=== PATIENT | female | born 1935 | race Asian ===

== ENCOUNTER 2017-03-19 02:10 | Inpatient (IN) | payer MEDICARE, MEDICAID ==
[2017-03-19] VITALS (8 sets, daily range): BP systolic 104–135; BP diastolic 62–79
[~2017-03-19] VITALS: Ht 157.5 cm; Wt 53.1 kg
[2017-03-19] MEDS ORDERED: BP MEDS (02:41)
[2017-03-19 03:30] LABS: BASOPHILS % (AUTO) 0.6 % (0.0-2.0); EOSINOPHILS % (AUTO) 4.1 % (0.0-3.0); LYMPHOCYTES % (AUTO) 11.9 % (20.0-45.0); MEAN CORPUSCULAR HEMOGLOBIN 30.4 PG (27.0-31.0); MEAN CORPUSCULAR VOLUME 92 FL (80-99); MEAN PLATELET VOLUME 8.3 FL (6.5-10.1); MONOCYTES % (AUTO) 9.9 % (1.0-10.0); NEUTROPHILS % (AUTO) 73.6 % (45.0-75.0); PLATELET COUNT 125 K/UL (150-450); RED BLOOD COUNT 3.93 M/UL (4.20-5.40); WHITE BLOOD COUNT 5.1 K/UL (4.8-10.8)
[2017-03-19 03:31] LABS: APPEARANCE,URINE CLEAR; KETONES,URINE NEGATIVE (NEGATIVE); LEUKOCYTE ESTERASE ,URINE 3+ (NEGATIVE); NITRITE,URINE NEGATIVE (NEGATIVE); PH,URINE 5 (4.5-8.0); PROTEIN,URINE 1+ (NEGATIVE); UROBILINOGEN,URINE NORMAL MG/DL (0.0-1.0)
[2017-03-19 03:38] LABS: BACTERIA,URINE FEW /HPF; RBC,URINE 0-2 /HPF (0 - 2); SQUAMOUS EPITHELIAL CELL,UR FEW /LPF (NONE/OCC); WBC,URINE TNTC /HPF (0 - 2)
[2017-03-19 03:50] LABS: ALANINE AMINOTRANSFERASE 67 U/L (3-33); ALBUMIN/GLOBULIN RATIO 1.3 (1.0-2.7); ANION GAP 18 (5-15); ASPARTATE AMINO TRANSFERASE 119 U/L (5-40); CALCIUM 9.1 mg/dL (8.6-10.2); CARBON DIOXIDE 19 mEQ/L (20-30); CHLORIDE 93 mEQ/L (98-107); CREATININE 2.2 mg/dL (0.5-0.9); HEMOLYSIS 12; POTASSIUM 4.4 mEQ/L (3.4-4.9); SODIUM 130 mEQ/L (135-145); TOTAL PROTEIN 7.6 g/dL (6.6-8.7); TROPONIN I < 0.30 ng/mL (<=0.30)
[2017-03-19 04:02] LABS: CKMB 3.2 ng/mL (< 3.8)
[2017-03-19] MEDS ORDERED: cefTRIAXone 1 GM in NS 55 ML IVPB ONE (04:30)
--- NOTE | 2017-03-19 06:55 | Emergency Room Report ---
History of Present Illness General Chief Complaint: Generalized Weakness Source: Patient, Family Member Present Illness HPI 81-year-old female presents ED for evaluation. Son at bedside states that the last few days patient is feeling increasingly weak with poor appetite. Febrile at home. Patient denies any chest pain or shortness of breath. Denies any nausea or vomiting. Denies sick contacts or recent travel. No other aggravating relieving factors. Denies any other associated symptoms Allergies: Coded Allergies: No Known Allergies (Unverified , 03/19/17) Patient History Past Medical History: HTN Past Surgical History: none Pertinent Family History: none Social History: Denies: alcohol use, drug use, smoking Now: No Immunizations: UTD Reviewed Nursing Documentation: PMH: Agreed, PSxH: Agreed Nursing Documentation-PMH Hx Hypertension: Yes Review of Systems All Other Systems: negative except mentioned in HPI Physical Exam Vital Signs Date Time Temp Pulse Resp B/P Pulse Ox O2 Delivery O2 Flow Rate FiO2 03/19/17 02:32 99.7 93 16 107/69 98 Room Air Sp02 EP Interpretation: reviewed, normal General Appearance: no apparent distress, alert, GCS 15, non-toxic Head: normocephalic, atraumatic Eyes: bilateral eye PERRL, bilateral eye normal inspection ENT: hearing grossly normal, normal pharynx, no angioedema, normal voice Neck: full range of motion, supple/symm/no masses Respiratory: chest non-tender, lungs clear, normal breath sounds, speaking full sentences Cardiovascular #1: regular rate, rhythm, no edema Cardiovascular #2: 2+ carotid (R), 2+ carotid (L), 2+ radial (R), 2+ radial (L) , 2+ dorsalis pedis (R), 2+ dorsalis pedis (L) Gastrointestinal: normal bowel sounds, non tender, soft, non-distended, no guarding, no rebound Rectal: deferred Genitourinary: normal inspection, no CVA tenderness Musculoskeletal: back normal, gait/station normal, normal range of motion, non- tender Neurologic: alert, oriented x3, responsive, motor strength/tone normal, sensory intact, speech normal Psychiatric: judgement/insight normal, memory normal, mood/affect normal, no suicidal/homicidal ideation Reflexes: 3+ bicep (R), 3+ bicep (L), 3+ tricep (R), 3+ tricep (L), 3+ knee (R) , 3+ knee (L) Skin: normal color, no rash, warm/dry, well hydrated Lymphatic: no adenopathy Medical Decision Making Diagnostic Impression: Primary Impression: Weakness Additional Impressions: Dehydration UTI (urinary tract infection) Qualified Codes: N39.0 - Urinary tract infection, site not specified ER Course Hospital Course 81-year-old female presenting to ED with generalized weakness, poor appetite Differential diagnoses include: Pneumonia, UTI, sepsis, dehydration, AL/ unstable angina Clinical course Patient placed on stretcher. On cardiac/vascular sonographer with stable vitals are ED course. After initial history and physical, I ordered labs, IV fluids, EKG, chest x-ray, blood cultures, UA. Labs - BUN/Cr elevated, no leukocytosis, troponins negative, UA grossly positive for UTI EKG - NSR, no acute changes interpreted by me CXR - no acute process Abx given. IVFs given. Case discussed with Dr Nuñez and they agreed to admit patient to their service for further care and support I feel this is a highly complex case requiring extensive working including EKG/ Rhythm strip, Xray/CT/US, Blood/urine lab work, repeat exams while in ED, and administration of strong opiates/narcotics for pain control, admission to hospital or close patient follow up. Diagnosis - UTI, weakness, dehydration Patient admitted to floor in serious condition Labs Test 03/19/17 02:50 03/19/17 03:05 Urine Color Pale yellow Urine Appearance Clear Urine pH 5 (4.5-8.0) Urine Specific [place] 1.010 (1.005-1.035) Urine Protein 1+ (NEGATIVE) Urine Glucose (UA) Negative (NEGATIVE) Urine Ketones Negative (NEGATIVE) Urine Occult Blood 1+ (NEGATIVE) Urine Nitrite Negative (NEGATIVE) Urine Bilirubin Negative (NEGATIVE) Urine Urobilinogen Normal MG/DL (0.0-1.0) Urine Leukocyte Esterase 3+ (NEGATIVE) Urine RBC 0-2 /HPF (0 - 2) Urine WBC Tntc /HPF (0 - 2) Urine Squamous Epithelial Cells Few /LPF (NONE/OCC) Urine Bacteria Few /HPF (NONE) White Blood Count 5.1 K/UL (4.8-10.8) Red Blood Count 3.93 M/UL (4.20-5.40) Hemoglobin 11.9 G/DL (12.0-16.0) Hematocrit 36.2 % (37.0-47.0) Mean Corpuscular Volume 92 FL (80-99) Mean Corpuscular Hemoglobin 30.4 PG (27.0-31.0) Mean Corpuscular Hemoglobin Concent 33.0 G/DL (32.0-36.0) Red Cell Distribution Width 13.0 % (11.6-14.8) Platelet Count 125 K/UL (150-450) Mean Platelet Volume 8.3 FL (6.5-10.1) Neutrophils (%) (Auto) 73.6 % (45.0-75.0) Lymphocytes (%) (Auto) 11.9 % (20.0-45.0) Monocytes (%) (Auto) 9.9 % (1.0-10.0) Eosinophils (%) (Auto) 4.1 % (0.0-3.0) Basophils (%) (Auto) 0.6 % (0.0-2.0) Sodium Level 130 mEQ/L (135-145) Potassium Level 4.4 mEQ/L (3.4-4.9) Chloride Level 93 mEQ/L (98-107) Carbon Dioxide Level 19 mEQ/L (20-30) Anion Gap 18 (5-15) Blood Urea Nitrogen 35 mg/dL (7-23) Creatinine 2.2 mg/dL (0.5-0.9) Estimat Glomerular Filtration Rate mL/min (>60) Glucose Level 121 mg/dL (74-106) Lactic Acid Level 1.40 mmol/L (0.66-2.22) Calcium Level 9.1 mg/dL (8.6-10.2) Total Bilirubin 0.5 mg/dL (0.0-1.2) Aspartate Amino Transf (AST/SGOT) 119 U/L (5-40) Alanine Aminotransferase (ALT/SGPT) 67 U/L (3-33) Alkaline Phosphatase 43 U/L (35-104) Total Creatine Kinase 204 U/L (26-140) Creatine Kinase MB 3.2 ng/mL (< 3.8) Creatine Kinase MB Relative Index 1.5 Troponin I < 0.30 ng/mL (<=0.30) Pro-B-Type Natriuretic Peptide 1285 pg/mL (0-450) Total Protein 7.6 g/dL (6.6-8.7) Albumin 4.4 g/dL (3.5-5.2) Globulin 3.2 g/dL Albumin/Globulin Ratio 1.3 (1.0-2.7) EKG Diagnostic Results Rate: normal Rhythm: NSR ST Segments: no acute changes ASA given to the pt in ED: No Rhythm Strip Diag. Results EP Interpretation: yes Rhythm: NSR, no PVC's, no ectopy Chest X-Ray Diagnostic Results Chest X-Ray Diagnostic Results : Chest X-Ray Ordered: Yes # of Views/Limited/Complete: 1 View Indication: Other - weakness EP Interpretation: Yes Interpretation: no consolidation, no effusion, no pneumothorax, no acute cardiopulmonary disease, other - cardiomegaly Impression: No acute disease Interpreting ER Provider: Electronically signed by Tru Raygoza MD Last Vital Signs Date Time Temp Pulse Resp B/P Pulse Ox O2 Delivery O2 Flow Rate FiO2 03/19/17 06:38 102.7 81 19 126/66 100 Room Air Status: improved Disposition: ADMITTED INPATIENT Condition: Serious Referrals: NON PHYSICIAN (PCP) TRU RAYGOZA M.D. Mar 19, 2017 06:55
--- NOTE | 2017-03-19 09:03 | Infectious Diseases Prog Note ---
Assessment/Plan Problems: (1) UTI (urinary tract infection) Assessment & Plan: will send culture and start cefepime empirically (2) Sepsis Assessment & Plan: will send blood culture and start cefepime with clindamycin (3) Skin rash Assessment & Plan: unclear etiology, will order sed rate and liver function test, will screen for HIV, and syphillis (4) Dehydration Assessment & Plan: continue ivf for hydration (5) Weakness Assessment & Plan: recommend pt /ot eval (6) JOMAR (acute kidney injury) Assessment & Plan: due to dehydration, continue ivf , monitor UOP Subjective Respiratory: Reports: dry cough, no symptoms, other, productive cough, shortness of breath Allergies: Coded Allergies: No Known Allergies (Unverified , 03/19/17) Objective Vital Signs Last 24 Hour Vital Signs Date Time Temp Pulse Resp B/P Pulse Ox O2 Delivery O2 Flow Rate FiO2 03/19/17 07:59 102.7 93 20 116/62 98 Room Air 03/19/17 06:38 102.7 81 19 126/66 100 Room Air 03/19/17 05:55 99.7 95 20 135/79 97 Room Air 03/19/17 05:55 99.7 95 20 135/79 97 Room Air 03/19/17 04:45 99.7 97 19 109/62 99 Room Air 03/19/17 02:45 99.7 93 16 107/69 98 Room Air 03/19/17 02:32 99.7 93 16 107/69 98 Room Air Height (Feet): 5 Height (Inches): 2.00 Weight (Pounds): 117 Laboratory Tests Test 03/19/17 02:50 03/19/17 03:05 Urine Color Pale yellow Urine Appearance Clear Urine pH 5 (4.5-8.0) Urine Specific [place] 1.010 (1.005-1.035) Urine Protein 1+ (NEGATIVE) H Urine Glucose (UA) Negative (NEGATIVE) Urine Ketones Negative (NEGATIVE) Urine Occult Blood 1+ (NEGATIVE) H Urine Nitrite Negative (NEGATIVE) Urine Bilirubin Negative (NEGATIVE) Urine Urobilinogen Normal MG/DL (0.0-1.0) Urine Leukocyte Esterase 3+ (NEGATIVE) H Urine RBC 0-2 /HPF (0 - 2) Urine WBC Tntc /HPF (0 - 2) H Urine Squamous Epithelial Cells Few /LPF (NONE/OCC) Urine Bacteria Few /HPF (NONE) White Blood Count 5.1 K/UL (4.8-10.8) Red Blood Count 3.93 M/UL (4.20-5.40) L Hemoglobin 11.9 G/DL (12.0-16.0) L Hematocrit 36.2 % (37.0-47.0) L Mean Corpuscular Volume 92 FL (80-99) Mean Corpuscular Hemoglobin 30.4 PG (27.0-31.0) Mean Corpuscular Hemoglobin Concent 33.0 G/DL (32.0-36.0) Red Cell Distribution Width 13.0 % (11.6-14.8) Platelet Count 125 K/UL (150-450) L Mean Platelet Volume 8.3 FL (6.5-10.1) Neutrophils (%) (Auto) 73.6 % (45.0-75.0) Lymphocytes (%) (Auto) 11.9 % (20.0-45.0) L Monocytes (%) (Auto) 9.9 % (1.0-10.0) Eosinophils (%) (Auto) 4.1 % (0.0-3.0) H Basophils (%) (Auto) 0.6 % (0.0-2.0) Sodium Level 130 mEQ/L (135-145) L Potassium Level 4.4 mEQ/L (3.4-4.9) Chloride Level 93 mEQ/L (98-107) L Carbon Dioxide Level 19 mEQ/L (20-30) L Anion Gap 18 (5-15) H Blood Urea Nitrogen 35 mg/dL (7-23) H Creatinine 2.2 mg/dL (0.5-0.9) H Estimat Glomerular Filtration Rate mL/min (>60) Glucose Level 121 mg/dL (74-106) H Lactic Acid Level 1.40 mmol/L (0.66-2.22) Calcium Level 9.1 mg/dL (8.6-10.2) Total Bilirubin 0.5 mg/dL (0.0-1.2) Aspartate Amino Transf (AST/SGOT) 119 U/L (5-40) H Alanine Aminotransferase (ALT/SGPT) 67 U/L (3-33) H Alkaline Phosphatase 43 U/L (35-104) Total Creatine Kinase 204 U/L (26-140) H Creatine Kinase MB 3.2 ng/mL (< 3.8) Creatine Kinase MB Relative Index 1.5 Troponin I < 0.30 ng/mL (<=0.30) Pro-B-Type Natriuretic Peptide 1285 pg/mL (0-450) H Total Protein 7.6 g/dL (6.6-8.7) Albumin 4.4 g/dL (3.5-5.2) Globulin 3.2 g/dL Albumin/Globulin Ratio 1.3 (1.0-2.7) Current Medications Medications (Trade) Dose Ordered Sig/Sandor Route PRN Reason Start Time Stop Time Status Last Admin Dose Admin Ondansetron HCl (Zofran) 4 mg Q6H PRN IVP Nausea & Vomiting 03/19/17 05:30 04/18/17 05:29 Puja Patiño M.D. Mar 19, 2017 09:03
[2017-03-19] MEDS: D5NS 1,000 ML IV SCH ×2 (09:25→22:18)
--- NOTE | 2017-03-19 09:44 | Consultation ---
Consult Note Consult Note asked to eval for renal failure- examined- data reviewed Chief Complaint: Generalized Weakness 81-year-old female presents ED for evaluation. Son at bedside states that the last few days patient is feeling increasingly weak with poor appetite. Febrile at home. Patient denies any chest pain or shortness of breath. Denies any nausea or vomiting. Denies sick contacts or recent travel. No other aggravating relieving factors. Denies any other associated symptoms Past Medical History: HTN Hx Hypertension: Yes Vital Signs Date Time Temp Pulse Resp B/P Pulse Ox O2 Delivery O2 Flow Rate FiO2 03/19/17 02:32 99.7 93 16 107/69 98 Room Air Assessment/Plan status: Acute renal failure , likely dehydration Hyponatremia UTI / Sepsis Anemia HT N Plan: Hydrate- [place] Antibiotics monitor lytes and renal parameters Urine studies MERLY LINTON Mar 19, 2017 09:44
[2017-03-19] MEDS ORDERED: Cefepime HCl 2 GM in D5W 110 ML IVPB ONE (10:00)
[2017-03-19] MEDS ORDERED: Hydrocortisone 1% Oint 30gm TOPIC PRN (11:00)
[2017-03-19] MEDS: Clindamycin 600mg 50 ML IV SCH ×2 (11:36→20:30)
--- NOTE | 2017-03-19 11:48 | GI Initial Consult Note ---
History of Present Illness General Date patient seen: Mar 19, 2017 Time patient seen: 11:00 Reason for Hospitalization: Generalized Weakness Referring physician: JODIE FISHER Reason for Consultation: DEHYDRATION Present Illness HPI 81-year-old female presents ED for evaluation. Son at bedside states that the last few days patient is feeling increasingly weak with poor appetite. Febrile at home. Patient denies any chest pain or shortness of breath. Denies any nausea or vomiting. Denies sick contacts or recent travel. No other aggravating relieving factors. Denies any other associated symptoms GI Consult. HPI as noted above. GI consulted for weakness and poor appetite. Pt seen on floor, awake A&Ox4 NAD with no active s/sx of N/V/D. Denies any pain. C/o of itching. States she was running a fever, so she had a little wine which caused her to have a systemic allergic reaction. Hives noted all over her body. No history of endoscopic procedures. Home Meds Reported Medications [Bp Meds] No Conflict Check 03/19/17 Med list reviewed/reconciled: Yes Allergies: Coded Allergies: No Known Allergies (Unverified , 03/19/17) Patient History History Provided By: Patient, Medical Record PMH Narrative Past Medical History: HTN Past Surgical History: none Pertinent Family History: none Social History: Denies: alcohol use, drug use, smoking Now: No Immunizations: UTD Reviewed Nursing Documentation: PMH: Agreed, PSxH: Agreed Nursing Documentation-PMH Hx Hypertension: Yes Social History: Reports: alcohol use - denies abuse. Review of Systems All Other Systems: negative except mentioned in HPI Physical Exam Vital Signs Date Time Temp Pulse Resp B/P Pulse Ox O2 Delivery O2 Flow Rate FiO2 03/19/17 02:32 99.7 93 16 107/69 98 Room Air Sp02 EP Interpretation: reviewed Labs Laboratory Tests Test 03/19/17 02:50 03/19/17 03:05 03/19/17 10:50 Urine Color Pale yellow Urine Appearance Clear Urine pH 5 (4.5-8.0) Urine Specific [place] 1.010 (1.005-1.035) Urine Protein 1+ (NEGATIVE) H Urine Glucose (UA) Negative (NEGATIVE) Urine Ketones Negative (NEGATIVE) Urine Occult Blood 1+ (NEGATIVE) H Urine Nitrite Negative (NEGATIVE) Urine Bilirubin Negative (NEGATIVE) Urine Urobilinogen Normal MG/DL (0.0-1.0) Urine Leukocyte Esterase 3+ (NEGATIVE) H Urine RBC 0-2 /HPF (0 - 2) Urine WBC Tntc /HPF (0 - 2) H Urine Squamous Epithelial Cells Few /LPF (NONE/OCC) Urine Bacteria Few /HPF (NONE) White Blood Count 5.1 K/UL (4.8-10.8) Red Blood Count 3.93 M/UL (4.20-5.40) L Hemoglobin 11.9 G/DL (12.0-16.0) L Hematocrit 36.2 % (37.0-47.0) L Mean Corpuscular Volume 92 FL (80-99) Mean Corpuscular Hemoglobin 30.4 PG (27.0-31.0) Mean Corpuscular Hemoglobin Concent 33.0 G/DL (32.0-36.0) Red Cell Distribution Width 13.0 % (11.6-14.8) Platelet Count 125 K/UL (150-450) L Mean Platelet Volume 8.3 FL (6.5-10.1) Neutrophils (%) (Auto) 73.6 % (45.0-75.0) Lymphocytes (%) (Auto) 11.9 % (20.0-45.0) L Monocytes (%) (Auto) 9.9 % (1.0-10.0) Eosinophils (%) (Auto) 4.1 % (0.0-3.0) H Basophils (%) (Auto) 0.6 % (0.0-2.0) Sodium Level 130 mEQ/L (135-145) L Potassium Level 4.4 mEQ/L (3.4-4.9) Chloride Level 93 mEQ/L (98-107) L Carbon Dioxide Level 19 mEQ/L (20-30) L Anion Gap 18 (5-15) H Blood Urea Nitrogen 35 mg/dL (7-23) H Creatinine 2.2 mg/dL (0.5-0.9) H Estimat Glomerular Filtration Rate mL/min (>60) Glucose Level 121 mg/dL (74-106) H Lactic Acid Level 1.40 mmol/L (0.66-2.22) Calcium Level 9.1 mg/dL (8.6-10.2) Total Bilirubin 0.5 mg/dL (0.0-1.2) Aspartate Amino Transf (AST/SGOT) 119 U/L (5-40) H Alanine Aminotransferase (ALT/SGPT) 67 U/L (3-33) H Alkaline Phosphatase 43 U/L (35-104) Total Creatine Kinase 204 U/L (26-140) H Creatine Kinase MB 3.2 ng/mL (< 3.8) Creatine Kinase MB Relative Index 1.5 Troponin I < 0.30 ng/mL (<=0.30) Pro-B-Type Natriuretic Peptide 1285 pg/mL (0-450) H Total Protein 7.6 g/dL (6.6-8.7) Albumin 4.4 g/dL (3.5-5.2) Globulin 3.2 g/dL Albumin/Globulin Ratio 1.3 (1.0-2.7) Erythrocyte Sedimentation Rate Pending Rapid Plasma Reagin Pending Hepatitis A IgM Antibody Pending Hepatitis B Surface Antigen Pending Hepatitis B Core IgM Antibody Pending Hepatitis C Antibody Pending HIV (1&2) Antibody Rapid Pending General Appearance: well appearing, no apparent distress, alert Head: normocephalic EENT: PERRL/EOMI, normal ENT inspection Neck: supple Respiratory: normal breath sounds, no respiratory distress Cardiovascular: normal rate Gastrointestinal: normal inspection, non tender, soft, normal bowel sounds Rectal: deferred Genitourinary: bladder normal Musculoskeletal: back normal Neurologic: normal inspection, alert, oriented x3, responsive Psychiatric: normal inspection, judgement/insight normal, memory normal Skin: normal inspection, normal color, no rash Lymphatic: normal inspection, no adenopathy Current Medications Current Medications Medications (Trade) Dose Ordered Sig/Sandor Route PRN Reason Start Time Stop Time Status Last Admin Dose Admin Acetaminophen (Tylenol) 650 mg Q4H PRN ORAL Mild Pain/Temp > 100 03/19/17 09:15 04/18/17 09:14 Cefepime HCl/ Dextrose (Maxipime/D5W) 55 ml @ 110 mls/hr Q24H IVPB 03/20/17 10:00 03/27/17 09:59 Clindamycin HCl/ Dextrose 50 ml @ 100 mls/hr Q8HR@0400,1200,2000 IV 03/19/17 11:00 03/26/17 10:59 03/19/17 11:36 Clonidine HCl (Catapres) 0.1 mg Q4H PRN ORAL bp over 160 syst 03/19/17 10:00 04/18/17 09:59 Dextrose/Sodium Chloride (D5ns) 1,000 ml @ 75 mls/hr [id number] IV 03/19/17 09:15 04/18/17 09:14 03/19/17 09:25 Diphenhydramine HCl 25 mg 25 mg Q6H PRN ORAL Itching 03/19/17 09:15 04/18/17 09:14 Hydrocortisone (Hydrocortisone) 1 applic Q6H PRN TOPIC Itching 03/19/17 11:00 04/18/17 10:59 03/19/17 11:37 Ondansetron HCl 4 mg 4 mg Q6H PRN IVP Nausea & Vomiting 03/19/17 05:30 04/18/17 05:29 Ranitidine HCl (Zantac) 150 mg TWICE A DAY ORAL 03/19/17 10:00 04/18/17 09:59 GI: Plan Problems: (1) Skin rash (2) Weakness (3) Dehydration (4) fever Plan symptomatic treatment at this time adv diet zofran prn anemia work up hydrocortisone + Benadryl prn calorie count, consider marinol repeat LFTs H2B fu labs outpatient GI procedures Discussed with Dr. Wang. Thank you for referring this patient, we will follow. Diane Carrizales N.P. Mar 19, 2017 11:48
--- NOTE | 2017-03-19 13:21 | Diagnostic Imaging Report ---
Indication: Chest pain Technique: One view of the chest Comparison: none Findings: Lungs and pleural spaces are clear. The heart size is upper limits of normal. Impression: No acute process
--- NOTE | 2017-03-19 16:23 | Cardiology Report ---
APPROVED REPORT EKG Measurement Heart [id number] [place] [id number] Normal sinus rhythm T wave abnormality, consider anterior ischemia Abnormal ECG
[2017-03-19] MEDS ORDERED: D5NS 1000ml IV ONE (16:55)
[2017-03-19] MEDS ORDERED: Tubing IV Secondary IV ONE (16:55)
[2017-03-19] MEDS: Nystatin Susp 500,000 units/5ml ORAL SCH (19:04)
[2017-03-20] VITALS: BP 102/65
--- NOTE | 2017-03-20 00:15 | Consultation ---
DATE OF CONSULTATION: INFECTIOUS DISEASES CONSULTATION: CONSULTING PHYSICIAN: Puja Patiño M.D. REQUESTING PHYSICIAN: Bernabe Nuñez M.D. REASON FOR CONSULTATION: Fever and rash. Recommendation for antibiotics therapy with urinary tract infection, possible sepsis, recommendation for treatment. HISTORY OF PRESENT ILLNESS: The patient is an 81-year-old female with past medical history of hypertension, was brought into the hospital by her son for fever of 102 degrees and diffuse body rash, started the night before. The patient had fever since Friday and she was feeling hot, did not have any sick contacts or recent travel. Nobody sick around her at home. Last night, she broke rash all over her body with swollen face after she had a drink of wine the night before. The patient denied any recent new medication. No recent sick contacts. She never had any skin rash before. The patient was found to have high temperature in the emergency room of 99.7 degrees, up to 102 degrees on the floor. So, I was consulted by the primary provider for antibiotics treatment and further management. As of note, the patient is Kyrgyz speaker only, could not provide any history. History was obtained from the son over the phone and nursing staff. PAST MEDICAL HISTORY: Significant for hypertension. PAST SURGICAL HISTORY: Negative. MEDICATIONS: The patient received ceftriaxone in the emergency room for her urinary tract infection. For the rest of her medications, please refer to [facility]. ALLERGY: She has no known drug or food allergy. SOCIAL HISTORY: The patient lives at home with kids and family. No recent drugs, tobacco, or alcohol. REVIEW OF SYSTEMS: Unable to obtain at this point. PHYSICAL EXAMINATION: VITAL SIGNS: Temperature is 98.8 degrees, pulse 68, respirations 19, blood pressure 104/62, and pulse oximetry 100% on room air. GENERAL: This is an elderly female lying in bed with diffuse papular rash all over her body and redness with swollen face, awake and alert, not in distress. HEENT: She had swollen eye with redness in her face, thrush in her mouth. No oral ulcers. NECK: Supple. No lymphadenopathy. CARDIOVASCULAR: Regular rate and rhythm. No murmur or gallop. LUNGS: Clear bilaterally. No wheezing. No rhonchi. ABDOMEN: Soft, nontender, and nondistended. Positive bowel sounds. No hepatosplenomegaly. No ascites. EXTREMITIES: No edema or cyanosis. SKIN: She had diffuse papular red rash with warmth, itchy all over her body. LABORATORY AND DIAGNOSTIC DATA: White count of 5.1, hemoglobin of 11.9, eosinophils of 4.1. Sedimentation rate of 73. BUN of 35 and creatinine of 2.2. AST of 119 and ALT of 67. CK is 204. Urinalysis showed +3 leukocyte esterase with too numerous to count WBC. Human immunodeficiency virus screening negative. Imaging, chest x-ray showed no acute process. ASSESSMENT AND RECOMMENDATION: 1. Urinary tract infection. We will send urine culture and start cefepime empirically. 2. Sepsis. We will send blood culture and continue cefepime with clindamycin empiric coverage for now. 3. Skin rash, unclear etiology. We will order sedimentation rate and hepatitis panel. We will screen for human immunodeficiency virus and syphilis. Continue supportive care. 4. Dehydration. Continue intravenous fluid for hydration. 5. Acute renal failure due to dehydration. Continue hydration. Monitor urine output and renal function. 6. Weakness. Recommend physical therapy and occupational therapy evaluation. Puja Patiño M.D. DR: JANA JOB#: [id number] CC:
[2017-03-20] MEDS: Clindamycin 600mg 50 ML IV SCH ×2 (03:42→13:12)
[2017-03-20 04:00] VITALS: BP 127/71
[2017-03-20] MEDS ORDERED: ALLOPURINOL300 M1 ORAL (06:56)
[2017-03-20] MEDS ORDERED: FOSAMAX70 MG ORAL (06:56)
[2017-03-20] MEDS ORDERED: RISACAL-D TABL1 EACH PO (06:56)
[2017-03-20] MEDS ORDERED: ASPIRIN81 MG ORAL (06:56)
[2017-03-20] MEDS ORDERED: NEXIUM20 MG ORAL (06:56)
[2017-03-20] MEDS ORDERED: BENICAR40 MG ORAL (06:56)
[2017-03-20 07:38] LABS: MEAN CORPUSCULAR HEMOGLOBIN 29.9 PG (27.0-31.0); MEAN CORPUSCULAR HGB CONC 32.4 G/DL (32.0-36.0); MEAN CORPUSCULAR VOLUME 92 FL (80-99); MEAN PLATELET VOLUME 9.3 FL (6.5-10.1); PLATELET COUNT 92 K/UL (150-450); RED BLOOD COUNT 3.56 M/UL (4.20-5.40); RED CELL DISTRIBUTION WIDTH 13.2 % (11.6-14.8); WHITE BLOOD COUNT 4.3 K/UL (4.8-10.8)
[2017-03-20 07:55] LABS: ALANINE AMINOTRANSFERASE 154 U/L (3-33); ALBUMIN/GLOBULIN RATIO 1.4 (1.0-2.7); ANION GAP 14 (5-15); ASPARTATE AMINO TRANSFERASE 248 U/L (5-40); CALCIUM 7.7 mg/dL (8.6-10.2); CARBON DIOXIDE 16 mEQ/L (20-30); CHLORIDE 107 mEQ/L (98-107); CHOLESTEROL 107 mg/dL (< 200); CHOLESTEROL/HDL RATIO 4.7 (3.3-4.4); CREATININE 2.1 mg/dL (0.5-0.9); CRP QUANT 4.3 mg/dL (< 0.5); LDL CHOLESTEROL (CALC.) 56 mg/dL (60-99); MAGNESIUM 2.1 mg/dL (1.7-2.5); PHOSPHORUS 3.2 mg/dL (2.5-4.8); POTASSIUM 3.9 mEQ/L (3.4-4.9); SODIUM 137 mEQ/L (135-145); TOTAL PROTEIN 6.2 g/dL (6.6-8.7); URIC ACID 9.5 mg/dL (3.0-7.5)
[2017-03-20 07:57] LABS: FERRITIN 1745 ng/mL (13-150)
[2017-03-20 08:00] VITALS: BP_SYST 117; BP_SYST 162; BP_DIAS 47; BP_DIAS 84
--- NOTE | 2017-03-20 08:00 | History and Physical Report ---
DATE OF ADMISSION: 03/19/2017 HISTORY OF PRESENT ILLNESS: History is obtained by talking to the relative over the phone. The patient does not speak Polish apparently she is of [place] origin. The patient is admitted for dehydration and weakness with generalized rash and fever, rule out sepsis. The patient also has been complaining of itching. The patient had rash all over the face, and according to the . The patient does not speak Polish. The patient was brought here for fever, rule out sepsis, and also complained of itching. Denies nausea, vomiting, or diarrhea. Denies chills. Denies headaches or diplopia. Denies rectal bleeding. Denies diarrhea. Denies shortness of breath. Denies cough. Denies orthopnea. PAST MEDICAL HISTORY: Organic brain syndrome and GERD. PAST SURGICAL HISTORY: None known. MEDICATIONS: Apparently none. ALLERGIES: None known. SOCIAL HISTORY: The patient has no history of smoking, alcohol, or illicit drugs. FAMILY HISTORY: Noncontributory. REVIEW OF SYSTEMS: HEENT: No headaches. Respiratory: No shortness of breath or cough. Cardiovascular: No chest pain. Denies . Extremities: . Skin: itching and rash for the past couple of days. PHYSICAL EXAMINATION: VITAL SIGNS: Temperature is 100.6 degrees, pulse 68, and blood pressure 104/62. HEENT: PERRLA. NECK: Supple. No lymphadenopathy. CHEST: Clear to auscultation. CARDIOVASCULAR: Regular rate and rhythm. GI: Soft and nontender. No organomegaly. EXTREMITIES: No edema. Moves all four extremities. NEUROLOGIC: Sensory intact to light touch. Reflexes on both sides are equal in four extremities. throughout the body. Oriented x2. . LABORATORY DATA: White blood cell count 5.1, hemoglobin 11.9, and platelets 125,000. Sodium is 130, potassium 4.4, BUN 35, creatinine 3.2, and glucose 121. ASSESSMENT AND PLAN: 1. Hyponatremia. 2. Acute renal failure. 3. Rash. 4. Weakness and dehydration as well as fever. Rule out sepsis and elevated AST of 199 and ALT 167. Elevated BNP of 1285. I have asked Dr. Almazan, and Dr. Patiño to see the patient for the above- mentioned diagnoses and treatment. The patient also had elevated liver function tests, for which- I have asked Dr. Wang to see the patient. Dr. Wang, Dr. Almazan, and Dr. Patiño will see the patient for the rash and fever as well as for hyponatremia, acute renal failure, dehydration as well as to find out why the patient has elevated LFTs. Bernabe Nuñez M.D. DR: MAN JOB#: [id number] CC:
[2017-03-20 08:08] LABS: HEMOLYSIS 3; IRON 24 ug/dL (37-145); TOTAL IRON BINDING CAPACITY 200 ug/dL (250-400)
[2017-03-20 08:13] LABS: HEMOGLOBIN A1C 5.7 % (< 6.0)
[2017-03-20] MEDS: Nystatin Susp 500,000 units/5ml ORAL SCH ×3 (09:21→18:17)
[2017-03-20] MEDS ORDERED: Cefepime 1gm/D5W 55ml IVPB SCH ×2 (10:00)
[2017-03-20] MEDS ORDERED: D5NS 1000ml IV ONE (10:45)
[2017-03-20 10:53] LABS: BAND NEUTROPHILS % (MANUAL) 2 % (0-8); BASOPHILS % (MANUAL) 0 % (0-2); EOSINOPHILS % (MANUAL) 6 % (0-3); LYMPHOCYTES % (MANUAL) 20 % (20-45); NEUTROPHILS % (MANUAL) 68 % (45-75); PLATELET ESTIMATE DECREASED; PLATELET MORPHOLOGY NORMAL; TOTAL CELLS COUNTED 100
[2017-03-20 11:47] VITALS: BP 117/82
[2017-03-20] MEDS: D5NS 1,000 ML IV SCH (13:10)
--- NOTE | 2017-03-20 13:19 | GI Progress Note ---
Assessment/Plan Problems: (1) LFTs abnormal ICD Codes: R79.89 - Other specified abnormal findings of blood chemistry SNOMED: 403080345 (2) Dehydration ICD Codes: E86.0 - Dehydration SNOMED: 75601421 (3) Weakness ICD Codes: R53.1 - Weakness SNOMED: 63399481 Status: unchanged Status Narrative Discussed with Dr. Wang. Assessment/Plan iron deficiency >> venofer rising LFTs pt not ready for discharge ordered abdominal U/S fu hepatitis panel push PO fu calorie count H2B repeat LFTs fu labs The patient was seen and examined at bedside and all new and available data was reviewed in the patients chart. I agree with the above findings, impression and plan. (Patient seen earlier today. Signature stamp does not reflect patient encounter time.). -Roge Wang MD Subjective Subjective denies abdominal pain rash is better wants to go home Objective Last 24 Hour Vital Signs Date Time Temp Pulse Resp B/P Pulse Ox O2 Delivery O2 Flow Rate FiO2 03/20/17 11:47 99.0 89 18 117/82 99 Room Air 03/20/17 11:30 99.0 03/20/17 08:00 98.0 114 18 117/47 94 Room Air 03/20/17 04:00 102.7 80 18 127/71 97 Room Air 03/20/17 00:00 99.9 86 20 102/65 93 Room Air 03/19/17 20:00 102.4 83 18 121/75 96 03/19/17 15:47 102.6 97 20 107/63 99 Room Air 03/19/17 15:20 101.7 Intake and Output 03/19/17 03/20/17 19:00 07:00 Intake Total 1205 ml 950 ml Output Total 750 ml 1300 ml Balance 455 ml -350 ml Intake Oral 520 ml IV Total 685 ml 950 ml Output Urine Total 750 ml 1300 ml Laboratory Tests Test 03/20/17 06:45 White Blood Count 4.3 K/UL (4.8-10.8) L Red Blood Count 3.56 M/UL (4.20-5.40) L Hemoglobin 10.6 G/DL (12.0-16.0) L Hematocrit 32.8 % (37.0-47.0) L Mean Corpuscular Volume 92 FL (80-99) Mean Corpuscular Hemoglobin 29.9 PG (27.0-31.0) Mean Corpuscular Hemoglobin Concent 32.4 G/DL (32.0-36.0) Red Cell Distribution Width 13.2 % (11.6-14.8) Platelet Count 92 K/UL (150-450) L Mean Platelet Volume 9.3 FL (6.5-10.1) Neutrophils (%) (Auto) % (45.0-75.0) Lymphocytes (%) (Auto) % (20.0-45.0) Monocytes (%) (Auto) % (1.0-10.0) Eosinophils (%) (Auto) % (0.0-3.0) Basophils (%) (Auto) % (0.0-2.0) Differential Total Cells Counted 100 Neutrophils % (Manual) 68 % (45-75) Lymphocytes % (Manual) 20 % (20-45) Monocytes % (Manual) 4 % (1-10) Eosinophils % (Manual) 6 % (0-3) H Basophils % (Manual) 0 % (0-2) Band Neutrophils 2 % (0-8) Platelet Estimate Decreased L Platelet Morphology Normal Red Blood Cell Morphology Normal Sodium Level 137 mEQ/L (135-145) Potassium Level 3.9 mEQ/L (3.4-4.9) Chloride Level 107 mEQ/L (98-107) Carbon Dioxide Level 16 mEQ/L (20-30) L Anion Gap 14 (5-15) Blood Urea Nitrogen 25 mg/dL (7-23) H Creatinine 2.1 mg/dL (0.5-0.9) H Estimat Glomerular Filtration Rate mL/min (>60) Glucose Level 100 mg/dL (74-106) Hemoglobin A1c 5.7 % (< 6.0) Uric Acid 9.5 mg/dL (3.0-7.5) H Calcium Level 7.7 mg/dL (8.6-10.2) L Phosphorus Level 3.2 mg/dL (2.5-4.8) Magnesium Level 2.1 mg/dL (1.7-2.5) Iron Level 24 ug/dL (37-145) L Total Iron Binding Capacity 200 ug/dL (250-400) L Percent Iron Saturation 12 % (15-50) L Unsaturated Iron Binding 176 ug/dL (112-346) Ferritin 1745 ng/mL (13-150) H Total Bilirubin 0.4 mg/dL (0.0-1.2) Gamma Glutamyl Transpeptidase 67 U/L (5-36) H Aspartate Amino Transf (AST/SGOT) 248 U/L (5-40) H Alanine Aminotransferase (ALT/SGPT) 154 U/L (3-33) H Alkaline Phosphatase 47 U/L (35-104) Total Creatine Kinase 589 U/L (26-140) H C-Reactive Protein, Quantitative 4.3 mg/dL (< 0.5) H Pro-B-Type Natriuretic Peptide 470 pg/mL (0-450) H Total Protein 6.2 g/dL (6.6-8.7) L Albumin 3.7 g/dL (3.5-5.2) Globulin 2.5 g/dL Albumin/Globulin Ratio 1.4 (1.0-2.7) Triglycerides Level 142 mg/dL (< 150) Cholesterol Level 107 mg/dL (< 200) LDL Cholesterol 56 mg/dL (60-99) L HDL Cholesterol 23 mg/dL (> 60) Cholesterol/HDL Ratio 4.7 (3.3-4.4) H Vitamin B12 Level 701 pg/mL (211-946) Folate Pending Thyroid Stimulating Hormone (TSH) 1.390 uIU/mL (0.300-4.500) Hepatitis A IgM Antibody Pending Hepatitis B Surface Antigen Pending Hepatitis B Core IgM Antibody Pending Hepatitis C Antibody Pending Height (Feet): 5 Height (Inches): 2.00 Weight (Pounds): 117 General Appearance: no apparent distress, alert Cardiovascular: normal rate Respiratory/Chest: normal breath sounds, no respiratory distress Abdominal Exam: normal bowel sounds, non tender, soft Extremities: normal range of motion Diane Carrizales N.P. Mar 20, 2017 13:19 ROGE WANG Mar 20, 2017 16:54
--- NOTE | 2017-03-20 15:17 | General Progress Note ---
Assessment/Plan Status: unchanged Assessment/Plan status: Acute renal failure , likely dehydration Hyponatremia UTI / Sepsis Anemia HT N papular rash diffuse Plan: Hydrate- Ross reinsert Antibiotics monitor lytes and renal parameters Urine studies Subjective ROS Limited/Unobtainable: No Constitutional: Reports: malaise Allergies: Coded Allergies: No Known Allergies (Unverified , 03/19/17) Objective Last 24 Hour Vital Signs Date Time Temp Pulse Resp B/P Pulse Ox O2 Delivery O2 Flow Rate FiO2 03/20/17 11:47 99.0 89 18 117/82 99 Room Air 03/20/17 11:30 99.0 03/20/17 08:00 98.0 114 18 117/47 94 Room Air 03/20/17 04:00 102.7 80 18 127/71 97 Room Air 03/20/17 00:00 99.9 86 20 102/65 93 Room Air 03/19/17 20:00 102.4 83 18 121/75 96 03/19/17 15:47 102.6 97 20 107/63 99 Room Air 03/19/17 15:20 101.7 Intake and Output 03/19/17 03/20/17 19:00 07:00 Intake Total 1205 ml 950 ml Output Total 750 ml 1300 ml Balance 455 ml -350 ml Intake Oral 520 ml IV Total 685 ml 950 ml Output Urine Total 750 ml 1300 ml Laboratory Tests 03/20/17 06:45: White Blood Count 4.3L, Red Blood Count 3.56L, Hemoglobin 10.6L, Hematocrit 32.8L, Mean Corpuscular Volume 92, Mean Corpuscular Hemoglobin 29.9, Mean Corpuscular Hemoglobin Concent 32.4, Red Cell Distribution Width 13.2, Platelet Count 92L, Mean Platelet Volume 9.3, Neutrophils (%) (Auto) , Lymphocytes (%) ( Auto) , Monocytes (%) (Auto) , Eosinophils (%) (Auto) , Basophils (%) (Auto) , Differential Total Cells Counted 100, Neutrophils % (Manual) 68, Lymphocytes % ( Manual) 20, Monocytes % (Manual) 4, Eosinophils % (Manual) 6H, Basophils % ( Manual) 0, Band Neutrophils 2, Platelet Estimate DecreasedL, Platelet Morphology Normal, Red Blood Cell Morphology Normal, Sodium Level 137, Potassium Level 3.9, Chloride Level 107, Carbon Dioxide Level 16L, Anion Gap 14 , Blood Urea Nitrogen 25H, Creatinine 2.1H, Estimat Glomerular Filtration Rate , Glucose Level 100, Hemoglobin A1c 5.7, Uric Acid 9.5H, Calcium Level 7.7L, Phosphorus Level 3.2, Magnesium Level 2.1, Iron Level 24L, Total Iron Binding Capacity 200L, Percent Iron Saturation 12L, Unsaturated Iron Binding 176, Ferritin 1745H, Total Bilirubin 0.4, Gamma Glutamyl Transpeptidase 67H, Aspartate Amino Transf (AST/SGOT) 248H, Alanine Aminotransferase (ALT/SGPT) 154H , Alkaline Phosphatase 47, Total Creatine Kinase 589H, C-Reactive Protein, Quantitative 4.3H, Pro-B-Type Natriuretic Peptide 470H, Total Protein 6.2L, Albumin 3.7, Globulin 2.5, Albumin/Globulin Ratio 1.4, Triglycerides Level 142, Cholesterol Level 107, LDL Cholesterol 56L, HDL Cholesterol 23, Cholesterol/HDL Ratio 4.7H, Vitamin B12 Level 701, Folate [Pending], Thyroid Stimulating Hormone (TSH) 1.390, Hepatitis A IgM Antibody [Pending], Hepatitis B Surface Antigen [Pending], Hepatitis B Core IgM Antibody [Pending], Hepatitis C Antibody [Pending] Height (Feet): 5 Height (Inches): 2.00 Weight (Pounds): 117 General Appearance: lethargic Cardiovascular: tachycardia Respiratory/Chest: decreased breath sounds Abdomen: soft, distended Genitourinary/Rectal: other - pulled out ross Skin: other - diffuse papular rash Objective no other changes MERLY LINTON Mar 20, 2017 15:17
[2017-03-20 16:00] VITALS: BP 124/58
--- NOTE | 2017-03-20 16:13 | Diagnostic Imaging Report ---
Indication: Abnormal liver function tests and renal function tests Technique: Burt-scale and duplex images of the upper abdomen were obtained Comparison: None Findings: Gallbladder is unremarkable, without stones, wall thickening, nor pericholecystic fluid. Sonographic Luna's sign is negative. Common bile duct measures 5 mm in diameter. No intrahepatic biliary ductal dilatation. Liver demonstrates normal echogenicity, no focal abnormality. Portal vein and hepatic veins are patent. Pancreas is unremarkable. Spleen demonstrates a focal calcification. It also demonstrates demonstrates a lobulation versus accessory splenule. Left kidney measures 8.5 cm in length. Right kidney measures 8.5 cm length. Both kidneys demonstrate normal echogenicity. There is mild right hydronephrosis . There is a small upper pole left renal cyst . Non-aneurysmal abdominal aorta . Impression: Mild right hydronephrosis, etiology not demonstrated. Consider CT for further evaluation if clinically indicated Negative for gallstones or dilated ducts Incidental findings of granulomatous calcification within the spleen, small left renal cyst
--- NOTE | 2017-03-20 16:54 | Infectious Diseases Prog Note ---
Assessment/Plan Problems: (1) UTI (urinary tract infection) Assessment & Plan: await culture , continue cefepime empirically (2) Sepsis Assessment & Plan: await blood culture and continue cefepime , will switch clindamycin to doxycycline to cover for possible spirochete, and [place] fever (3) Skin rash Assessment & Plan: unclear etiology, suspect allergic reaction , with elevated sed rate and liver function test, will screen for mononucleosis , herpes, HZV , lyme disease, spirochete , and start doxycycline empirically . screening for HIV, syphilis, and hepatitis is negative. if infection work up is negative she may benefit from systemic steroids , recommend dermatology consult (4) Dehydration Assessment & Plan: continue ivf for hydration (5) Weakness Assessment & Plan: recommend pt /ot eval (6) JOMAR (acute kidney injury) Assessment & Plan: due to dehydration, continue ivf , monitor UOP Subjective Constitutional: Reports: fatigue, fever Skin: Reports: rash Allergies: Coded Allergies: No Known Allergies (Unverified , 03/19/17) All Systems: reviewed and negative except above Subjective she continues to have fever and skin rash diffuse all over her body Objective Vital Signs Last 24 Hour Vital Signs Date Time Temp Pulse Resp B/P Pulse Ox O2 Delivery O2 Flow Rate FiO2 03/20/17 16:00 100.6 83 18 124/58 98 Room Air 03/20/17 11:47 99.0 89 18 117/82 99 Room Air 03/20/17 11:30 99.0 03/20/17 08:00 98.0 114 18 117/47 94 Room Air 03/20/17 04:00 102.7 80 18 127/71 97 Room Air 03/20/17 00:00 99.9 86 20 102/65 93 Room Air 03/19/17 20:00 102.4 83 18 121/75 96 Height (Feet): 5 Height (Inches): 2.00 Weight (Pounds): 117 General Appearance: no acute distress, other - facial swelling HEENT: atraumatic, anicteric, mucous membranes moist, pharynx normal, supple, no JVD, other - periorbital swelling Respiratory/Chest: chest wall non-tender, lungs clear, normal breath sounds, no respiratory distress, no accessory muscle use Cardiovascular: normal peripheral pulses, normal rate, regular rhythm, no gallop/murmur, no JVD Abdomen: normal bowel sounds, soft, non tender, no organomegaly, non distended , no mass, no scars Extremities: no cyanosis, no clubbing Skin: rash Neurologic/Psychiatric: alert Microbiology Date/Time Source Procedure Growth Status 03/19/17 03:20 Blood Blood Culture - Preliminary NO GROWTH AFTER 24 HOURS Resulted 03/19/17 03:05 Blood Blood Culture - Preliminary NO GROWTH AFTER 24 HOURS Resulted 03/19/17 02:50 Urine,Clean Catch Urine Culture - Preliminary NO GROWTH Resulted Laboratory Tests Test 03/20/17 06:45 White Blood Count 4.3 K/UL (4.8-10.8) L Red Blood Count 3.56 M/UL (4.20-5.40) L Hemoglobin 10.6 G/DL (12.0-16.0) L Hematocrit 32.8 % (37.0-47.0) L Mean Corpuscular Volume 92 FL (80-99) Mean Corpuscular Hemoglobin 29.9 PG (27.0-31.0) Mean Corpuscular Hemoglobin Concent 32.4 G/DL (32.0-36.0) Red Cell Distribution Width 13.2 % (11.6-14.8) Platelet Count 92 K/UL (150-450) L Mean Platelet Volume 9.3 FL (6.5-10.1) Neutrophils (%) (Auto) % (45.0-75.0) Lymphocytes (%) (Auto) % (20.0-45.0) Monocytes (%) (Auto) % (1.0-10.0) Eosinophils (%) (Auto) % (0.0-3.0) Basophils (%) (Auto) % (0.0-2.0) Differential Total Cells Counted 100 Neutrophils % (Manual) 68 % (45-75) Lymphocytes % (Manual) 20 % (20-45) Monocytes % (Manual) 4 % (1-10) Eosinophils % (Manual) 6 % (0-3) H Basophils % (Manual) 0 % (0-2) Band Neutrophils 2 % (0-8) Platelet Estimate Decreased L Platelet Morphology Normal Red Blood Cell Morphology Normal Sodium Level 137 mEQ/L (135-145) Potassium Level 3.9 mEQ/L (3.4-4.9) Chloride Level 107 mEQ/L (98-107) Carbon Dioxide Level 16 mEQ/L (20-30) L Anion Gap 14 (5-15) Blood Urea Nitrogen 25 mg/dL (7-23) H Creatinine 2.1 mg/dL (0.5-0.9) H Estimat Glomerular Filtration Rate mL/min (>60) Glucose Level 100 mg/dL (74-106) Hemoglobin A1c 5.7 % (< 6.0) Uric Acid 9.5 mg/dL (3.0-7.5) H Calcium Level 7.7 mg/dL (8.6-10.2) L Phosphorus Level 3.2 mg/dL (2.5-4.8) Magnesium Level 2.1 mg/dL (1.7-2.5) Iron Level 24 ug/dL (37-145) L Total Iron Binding Capacity 200 ug/dL (250-400) L Percent Iron Saturation 12 % (15-50) L Unsaturated Iron Binding 176 ug/dL (112-346) Ferritin 1745 ng/mL (13-150) H Total Bilirubin 0.4 mg/dL (0.0-1.2) Gamma Glutamyl Transpeptidase 67 U/L (5-36) H Aspartate Amino Transf (AST/SGOT) 248 U/L (5-40) H Alanine Aminotransferase (ALT/SGPT) 154 U/L (3-33) H Alkaline Phosphatase 47 U/L (35-104) Total Creatine Kinase 589 U/L (26-140) H C-Reactive Protein, Quantitative 4.3 mg/dL (< 0.5) H Pro-B-Type Natriuretic Peptide 470 pg/mL (0-450) H Total Protein 6.2 g/dL (6.6-8.7) L Albumin 3.7 g/dL (3.5-5.2) Globulin 2.5 g/dL Albumin/Globulin Ratio 1.4 (1.0-2.7) Triglycerides Level 142 mg/dL (< 150) Cholesterol Level 107 mg/dL (< 200) LDL Cholesterol 56 mg/dL (60-99) L HDL Cholesterol 23 mg/dL (> 60) Cholesterol/HDL Ratio 4.7 (3.3-4.4) H Vitamin B12 Level 701 pg/mL (211-946) Folate Pending Thyroid Stimulating Hormone (TSH) 1.390 uIU/mL (0.300-4.500) Hepatitis A IgM Antibody Pending Hepatitis B Surface Antigen Pending Hepatitis B Core IgM Antibody Pending Hepatitis C Antibody Pending Current Medications Medications (Trade) Dose Ordered Sig/Sandor Route PRN Reason Start Time Stop Time Status Last Admin Dose Admin Acetaminophen (Tylenol) 650 mg Q4H PRN ORAL Mild Pain/Temp > 100 03/19/17 09:15 04/18/17 09:14 03/20/17 10:31 Cefepime HCl/ Dextrose (Maxipime/D5W) 55 ml @ 110 mls/hr Q24H IVPB 03/20/17 10:00 03/27/17 09:59 03/20/17 09:21 Clindamycin HCl/ Dextrose 50 ml @ 100 mls/hr Q8HR@0400,1200,2000 IV 03/19/17 11:00 03/26/17 10:59 03/20/17 13:12 Clonidine HCl (Catapres) 0.1 mg Q4H PRN ORAL bp over 160 syst 03/19/17 10:00 04/18/17 09:59 Dextrose/Sodium Chloride (D5ns) 1,000 ml @ 75 mls/hr [id number] IV 03/19/17 09:15 04/18/17 09:14 03/20/17 13:10 Diphenhydramine HCl 25 mg 25 mg Q6H PRN ORAL Itching 03/19/17 09:15 04/18/17 09:14 03/20/17 06:55 Hydrocortisone (Hydrocortisone) 1 applic Q6H PRN TOPIC Itching 03/19/17 11:00 04/18/17 10:59 03/19/17 11:37 Iron Sucrose/ Sodium Chloride (Venofer/Sodium Chloride) 60 ml @ 240 mls/hr ONCE ONCE IVPB 03/20/17 21:00 03/20/17 21:14 Nystatin 5 ml 5 ml TID ORAL 03/19/17 18:00 03/26/17 17:59 03/20/17 13:12 Ondansetron HCl 4 mg 4 mg Q6H PRN IVP Nausea & Vomiting 03/19/17 05:30 04/18/17 05:29 Ranitidine HCl (Zantac) 150 mg TWICE A DAY ORAL 03/19/17 10:00 04/18/17 09:59 03/20/17 09:21 Puja Patiño M.D. Mar 20, 2017 16:54
--- NOTE | 2017-03-20 18:00 | General Progress Note ---
Assessment/Plan Problem List: (1) UTI (urinary tract infection) ICD Codes: N39.0 - Urinary tract infection, site not specified SNOMED: 79355904 Qualifiers: Qualified Codes: N39.0 - Urinary tract infection, site not specified (2) Skin rash ICD Codes: R21 - Rash and other nonspecific skin eruption SNOMED: 628631434, 541358962 (3) Weakness ICD Codes: R53.1 - Weakness SNOMED: 49862729 (4) Dehydration ICD Codes: E86.0 - Dehydration SNOMED: 73268625 (5) fever,rash (6) Sepsis ICD Codes: A41.9 - Sepsis, unspecified organism SNOMED: 71676774 Status: progressing Assessment/Plan afebrile rash uti dry iv fluids rash treatment per id abx per id improving Subjective ROS Limited/Unobtainable: Yes Constitutional: Reports: no symptoms Allergies: Coded Allergies: No Known Allergies (Unverified , 03/19/17) Objective Last 24 Hour Vital Signs Date Time Temp Pulse Resp B/P Pulse Ox O2 Delivery O2 Flow Rate FiO2 03/20/17 16:00 100.6 83 18 124/58 98 Room Air 03/20/17 11:47 99.0 89 18 117/82 99 Room Air 03/20/17 11:30 99.0 03/20/17 08:00 98.0 114 18 117/47 94 Room Air 03/20/17 04:00 102.7 80 18 127/71 97 Room Air 03/20/17 00:00 99.9 86 20 102/65 93 Room Air 03/19/17 20:00 102.4 83 18 121/75 96 Intake and Output 03/19/17 03/20/17 19:00 07:00 Intake Total 1205 ml 950 ml Output Total 750 ml 1300 ml Balance 455 ml -350 ml Intake Oral 520 ml IV Total 685 ml 950 ml Output Urine Total 750 ml 1300 ml Laboratory Tests 03/20/17 06:45: White Blood Count 4.3L, Red Blood Count 3.56L, Hemoglobin 10.6L, Hematocrit 32.8L, Mean Corpuscular Volume 92, Mean Corpuscular Hemoglobin 29.9, Mean Corpuscular Hemoglobin Concent 32.4, Red Cell Distribution Width 13.2, Platelet Count 92L, Mean Platelet Volume 9.3, Neutrophils (%) (Auto) , Lymphocytes (%) ( Auto) , Monocytes (%) (Auto) , Eosinophils (%) (Auto) , Basophils (%) (Auto) , Differential Total Cells Counted 100, Neutrophils % (Manual) 68, Lymphocytes % ( Manual) 20, Monocytes % (Manual) 4, Eosinophils % (Manual) 6H, Basophils % ( Manual) 0, Band Neutrophils 2, Platelet Estimate DecreasedL, Platelet Morphology Normal, Red Blood Cell Morphology Normal, Sodium Level 137, Potassium Level 3.9, Chloride Level 107, Carbon Dioxide Level 16L, Anion Gap 14 , Blood Urea Nitrogen 25H, Creatinine 2.1H, Estimat Glomerular Filtration Rate , Glucose Level 100, Hemoglobin A1c 5.7, Uric Acid 9.5H, Calcium Level 7.7L, Phosphorus Level 3.2, Magnesium Level 2.1, Iron Level 24L, Total Iron Binding Capacity 200L, Percent Iron Saturation 12L, Unsaturated Iron Binding 176, Ferritin 1745H, Total Bilirubin 0.4, Gamma Glutamyl Transpeptidase 67H, Aspartate Amino Transf (AST/SGOT) 248H, Alanine Aminotransferase (ALT/SGPT) 154H , Alkaline Phosphatase 47, Total Creatine Kinase 589H, C-Reactive Protein, Quantitative 4.3H, Pro-B-Type Natriuretic Peptide 470H, Total Protein 6.2L, Albumin 3.7, Globulin 2.5, Albumin/Globulin Ratio 1.4, Triglycerides Level 142, Cholesterol Level 107, LDL Cholesterol 56L, HDL Cholesterol 23, Cholesterol/HDL Ratio 4.7H, Vitamin B12 Level 701, Folate [Pending], Thyroid Stimulating Hormone (TSH) 1.390, Hepatitis A IgM Antibody [Pending], Hepatitis B Surface Antigen [Pending], Hepatitis B Core IgM Antibody [Pending], Hepatitis C Antibody [Pending] 03/20/17 17:05: Herpes Simplex Virus I IgM Ab (IFA) [Pending], Herpes Simplex Virus II IgM Ab ( IFA [Pending], Monoscreen [Pending], Leptospira Antibody [Pending], Varicella- Zoster IgM Antibody [Pending] Height (Feet): 5 Height (Inches): 2.00 Weight (Pounds): 117 Cardiovascular: normal rate Respiratory/Chest: lungs clear Bernabe Nuñez MD Mar 20, 2017 18:00
[2017-03-20] MEDS: Doxycycline Hyclate 100 MG in D5W 110 ML IV SCH (18:17)
[2017-03-20] MEDS ORDERED: Iron Sucrose 100 MG in NS 55 ML IVPB ONE (21:00)
[2017-03-20 21:15] VITALS: BP 127/73
[2017-03-21] VITALS (7 sets, daily range): BP systolic 97–117; BP diastolic 51–70
[2017-03-21] MEDS: D5NS 1,000 ML IV SCH ×2 (01:28→18:05)
[2017-03-21] MEDS: Doxycycline Hyclate 100 MG in D5W 110 ML IV SCH (05:22)
[2017-03-21] MEDS ORDERED: NS 275 ML IVPB ONE (08:45)
[2017-03-21 08:47] LABS: BASOPHILS % (AUTO) 0.3 % (0.0-2.0); EOSINOPHILS % (AUTO) 7.1 % (0.0-3.0); LYMPHOCYTES % (AUTO) 14.7 % (20.0-45.0); MEAN CORPUSCULAR HEMOGLOBIN 30.7 PG (27.0-31.0); MEAN CORPUSCULAR HGB CONC 33.4 G/DL (32.0-36.0); MEAN CORPUSCULAR VOLUME 92 FL (80-99); MEAN PLATELET VOLUME 10.3 FL (6.5-10.1); MONOCYTES % (AUTO) 9.1 % (1.0-10.0); NEUTROPHILS % (AUTO) 68.8 % (45.0-75.0); PLATELET COUNT 103 K/UL (150-450); RED BLOOD COUNT 3.46 M/UL (4.20-5.40); RED CELL DISTRIBUTION WIDTH 13.4 % (11.6-14.8); WHITE BLOOD COUNT 4.5 K/UL (4.8-10.8)
[2017-03-21 08:53] LABS: ALANINE AMINOTRANSFERASE 184 U/L (3-33); ALBUMIN/GLOBULIN RATIO 1.3 (1.0-2.7); ANION GAP 13 (5-15); ASPARTATE AMINO TRANSFERASE 260 U/L (5-40); CALCIUM 7.5 mg/dL (8.6-10.2); CARBON DIOXIDE 15 mEQ/L (20-30); CHLORIDE 105 mEQ/L (98-107); CREATININE 1.9 mg/dL (0.5-0.9); HEMOLYSIS 6; POTASSIUM 3.8 mEQ/L (3.4-4.9); SODIUM 133 mEQ/L (135-145); TOTAL PROTEIN 5.8 g/dL (6.6-8.7)
[2017-03-21] MEDS: Nystatin Susp 500,000 units/5ml ORAL SCH ×4 (09:11→18:04)
[2017-03-21] MEDS ORDERED: NS IVPB ONE (09:30)
[2017-03-21] MEDS ORDERED: METHYLPREDNISOLONE SOD SUCC IVPB ONE (09:30)
--- NOTE | 2017-03-21 09:32 | General Progress Note ---
Assessment/Plan Status: deteriorating Assessment/Plan status: Acute renal failure , likely dehydration Hyponatremia UTI / Sepsis Anemia HT N papular rash diffuse Plan: to [facility] O2 Cardio and Pulmonary eval ? steroids if allergic rash? one dose solumedrol ordered Mackenzie reinsert Antibiotics monitor lytes and renal parameters Urine studies Subjective ROS Limited/Unobtainable: Yes Allergies: Coded Allergies: No Known Allergies (Unverified , 03/19/17) Objective Last 24 Hour Vital Signs Date Time Temp Pulse Resp B/P Pulse Ox O2 Delivery O2 Flow Rate FiO2 03/21/17 08:55 102.6 150 22 117/63 100 Nasal Cannula 3.0 03/21/17 04:00 98.4 50 20 102/60 95 Room Air 03/21/17 00:00 99.1 84 18 99/58 99 Room Air 03/20/17 23:08 99.1 03/20/17 21:15 102.4 92 19 127/73 98 Room Air 03/20/17 18:00 99.0 03/20/17 16:00 100.6 83 18 124/58 98 Room Air 03/20/17 11:47 99.0 89 18 117/82 99 Room Air Intake and Output 03/20/17 03/21/17 19:00 07:00 Intake Total 655 ml 1245 ml Output Total 600 ml 850 ml Balance 55 ml 395 ml Intake Oral 350 ml IV Total 655 ml 895 ml Output Urine Total 600 ml 850 ml # Voids 3 # Bowel Movements 2 1 Laboratory Tests 03/20/17 17:05: Herpes Simplex Virus I IgM Ab (IFA) [Pending], Herpes Simplex Virus II IgM Ab ( IFA [Pending], Monoscreen [Pending], Leptospira Antibody [Pending], Varicella- Zoster IgM Antibody [Pending] 03/21/17 01:50: Stool Occult Blood Negative 03/21/17 07:55: White Blood Count 4.5L, Red Blood Count 3.46L, Hemoglobin 10.6L, Hematocrit 31.8L, Mean Corpuscular Volume 92, Mean Corpuscular Hemoglobin 30.7, Mean Corpuscular Hemoglobin Concent 33.4, Red Cell Distribution Width 13.4, Platelet Count 103L, Mean Platelet Volume 10.3H, Neutrophils (%) (Auto) 68.8, Lymphocytes (%) (Auto) 14.7L, Monocytes (%) (Auto) 9.1, Eosinophils (%) (Auto) 7.1H, Basophils (%) (Auto) 0.3, Sodium Level 133L, Potassium Level 3.8, Chloride Level 105, Carbon Dioxide Level 15L, Anion Gap 13, Blood Urea Nitrogen 21, Creatinine 1.9H, Estimat Glomerular Filtration Rate , Glucose Level 114H, Calcium Level 7.5L, Total Bilirubin 0.3, Aspartate Amino Transf (AST/SGOT) 260H , Alanine Aminotransferase (ALT/SGPT) 184H, Alkaline Phosphatase 45, Total Protein 5.8L, Albumin 3.3L, Globulin 2.5, Albumin/Globulin Ratio 1.3 Height (Feet): 5 Height (Inches): 2.00 Weight (Pounds): 117 General Appearance: moderate distress Cardiovascular: tachycardia Respiratory/Chest: decreased breath sounds, other - hypoxic Abdomen: soft Skin: other - diffuse papular rash Objective no other changes MERLY LINTON Mar 21, 2017 09:32
[2017-03-21 09:45] LABS: ABG ALLEN TEST POSITIVE; ABG BASE EXCESS -9.3; ABG PCO2 22.7 mmHg (35.0-45.0)
[2017-03-21] MEDS ORDERED: Solu-MEDROL 125mg Inj IVP ONE (09:45)
--- NOTE | 2017-03-21 12:10 | Consultation ---
History of Present Illness General Date patient seen: Mar 21, 2017 Chief Complaint: Generalized Weakness Referring physician: JODIE FISHER Reason for Consultation: inpatient management Present Illness HPI 81-year-old female with hx of HTN was admitted two days go with CC of feeling increasingly weak with poor appetite. Febrile at home. She had a generalized rash which was contributed to some allergic reaction to Wine. This morning, she was tachycardic and dyspnic. She is transferred to [facility] for closer observation. Allergies: Coded Allergies: No Known Allergies (Unverified , 03/19/17) Medication History Scheduled Alendronate Sodium* (Fosamax*), 70 MG ORAL ONCE A WEEK, (Reported) Allopurinol* (Allopurinol*), 300 MG ORAL DAILY, (Reported) Aspirin* (Aspirin*), 81 MG ORAL DAILY, (Reported) Esomeprazole Magnesium (Nexium), 20 MG ORAL DAILY, (Reported) Olmesartan Medoxomil (Benicar), 40 MG ORAL DAILY, (Reported) Miscellaneous Medications Calcium Phosphate Dibas/Vit D3 (Risacal-D Tablet), 1 EACH PO, (Reported) [Bp Meds], (Reported) Patient History Healthcare decision maker Resuscitation status Full Code Advanced Directive on File Past Medical/Surgical History Past Medical/Surgical History: (1) HTN (hypertension) Review of Systems Constitutional: Reports: malaise, weakness Skin: Reports: rash All Other Systems: negative except mentioned in HPI Physical Exam Lines, tubes and drains: peripheral HEENT: normocephalic, atraumatic Neck: non-tender, normal alignment Respiratory/Chest: chest wall non-tender, lungs clear Cardiovascular/Chest: normal peripheral pulses, regular rhythm Abdomen: normal bowel sounds, non tender Genitourinary/Rectal: normal genital exam Extremities: normal range of motion Skin Exam: rash 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 grossly normal Lymphatic: anterior cervical Last 24 Hour Vital Signs Date Time Temp Pulse Resp B/P Pulse Ox O2 Delivery O2 Flow Rate FiO2 03/21/17 10:30 97.5 03/21/17 09:54 102.0 82 22 97/70 100 Nasal Cannula 3.0 03/21/17 09:38 102.0 03/21/17 08:55 102.6 150 22 117/63 100 Nasal Cannula 3.0 03/21/17 04:00 98.4 50 20 102/60 95 Room Air 03/21/17 00:00 99.1 84 18 99/58 99 Room Air 03/20/17 21:15 102.4 92 19 127/73 98 Room Air 03/20/17 18:00 99.0 03/20/17 16:00 100.6 83 18 124/58 98 Room Air Intake and Output 03/20/17 03/21/17 19:00 07:00 Intake Total 655 ml 1245 ml Output Total 600 ml 850 ml Balance 55 ml 395 ml Intake Oral 350 ml IV Total 655 ml 895 ml Output Urine Total 600 ml 850 ml # Voids 3 # Bowel Movements 2 1 Laboratory Tests Test 03/20/17 17:05 03/21/17 01:50 03/21/17 07:55 03/21/17 09:27 Herpes Simplex Virus I IgM Ab (IFA) Pending Herpes Simplex Virus II IgM Ab (IFA Pending Monoscreen Pending Leptospira Antibody Pending Varicella-Zoster IgM Antibody Pending Stool Occult Blood Negative (NEGATIVE) White Blood Count 4.5 K/UL (4.8-10.8) L Red Blood Count 3.46 M/UL (4.20-5.40) L Hemoglobin 10.6 G/DL (12.0-16.0) L Hematocrit 31.8 % (37.0-47.0) L Mean Corpuscular Volume 92 FL (80-99) Mean Corpuscular Hemoglobin 30.7 PG (27.0-31.0) Mean Corpuscular Hemoglobin Concent 33.4 G/DL (32.0-36.0) Red Cell Distribution Width 13.4 % (11.6-14.8) Platelet Count 103 K/UL (150-450) L Mean Platelet Volume 10.3 FL (6.5-10.1) H Neutrophils (%) (Auto) 68.8 % (45.0-75.0) Lymphocytes (%) (Auto) 14.7 % (20.0-45.0) L Monocytes (%) (Auto) 9.1 % (1.0-10.0) Eosinophils (%) (Auto) 7.1 % (0.0-3.0) H Basophils (%) (Auto) 0.3 % (0.0-2.0) Sodium Level 133 mEQ/L (135-145) L Potassium Level 3.8 mEQ/L (3.4-4.9) Chloride Level 105 mEQ/L (98-107) Carbon Dioxide Level 15 mEQ/L (20-30) L Anion Gap 13 (5-15) Blood Urea Nitrogen 21 mg/dL (7-23) Creatinine 1.9 mg/dL (0.5-0.9) H Estimat Glomerular Filtration Rate mL/min (>60) Glucose Level 114 mg/dL (74-106) H Calcium Level 7.5 mg/dL (8.6-10.2) L Total Bilirubin 0.3 mg/dL (0.0-1.2) Aspartate Amino Transf (AST/SGOT) 260 U/L (5-40) H Alanine Aminotransferase (ALT/SGPT) 184 U/L (3-33) H Alkaline Phosphatase 45 U/L (35-104) Total Protein 5.8 g/dL (6.6-8.7) L Albumin 3.3 g/dL (3.5-5.2) L Globulin 2.5 g/dL Albumin/Globulin Ratio 1.3 (1.0-2.7) Arterial Blood pH 7.400 (7.350-7.450) Arterial Blood Partial Pressure CO2 22.7 mmHg (35.0-45.0) *L Arterial Blood Partial Pressure O2 102.9 mmHg (75.0-100.0) H Arterial Blood HCO3 13.8 mmol/L (22.0-26.0) L Arterial Blood Oxygen Saturation 97.3 % (92.0-98.0) Arterial Blood Base Excess -9.3 Rubens Test Positive Height (Feet): 5 Height (Inches): 2.00 Weight (Pounds): 117 Medications Current Medications Medications (Trade) Dose Ordered Sig/Sandor Route PRN Reason Start Time Stop Time Status Last Admin Dose Admin Acetaminophen (Tylenol) 650 mg Q4H PRN ORAL Mild Pain/Temp > 100 03/19/17 09:15 04/18/17 09:14 03/21/17 08:39 Clonidine HCl (Catapres) 0.1 mg Q4H PRN ORAL bp over 160 syst 03/19/17 10:00 04/18/17 09:59 Dextrose/Sodium Chloride (D5ns) 1,000 ml @ 50 mls/hr Q20H IV 03/22/17 09:30 04/21/17 09:29 Diphenhydramine HCl (Benadryl) 25 mg Q6H PRN ORAL Itching 03/19/17 09:15 04/18/17 09:14 03/20/17 06:55 Hydrocortisone (Hydrocortisone) 1 applic Q6H PRN TOPIC Itching 03/19/17 11:00 04/18/17 10:59 03/19/17 11:37 Nystatin 5 ml 5 ml TID ORAL 03/19/17 18:00 03/26/17 17:59 03/21/17 09:11 Ondansetron HCl (Zofran) 4 mg Q6H PRN IVP Nausea & Vomiting 03/19/17 05:30 04/18/17 05:29 Ranitidine HCl (Zantac) 150 mg TWICE A DAY ORAL 03/19/17 10:00 04/18/17 09:59 03/21/17 09:11 Assessment/Plan Problem List: (1) Sepsis ICD Codes: A41.9 - Sepsis, unspecified organism SNOMED: 28074545 (2) Acute dyspnea ICD Codes: R06.00 - Dyspnea, unspecified SNOMED: 853599069 (3) Dermatitis ICD Codes: L30.9 - Dermatitis, unspecified SNOMED: 22770000 (4) Tachycardia ICD Codes: R00.0 - Tachycardia, unspecified SNOMED: 1160686 (5) HTN (hypertension) ICD Codes: I10 - Essential (primary) hypertension SNOMED: 82010825 Assessment/Plan stat cxr respiratory treatment echo cardiology evaluation dermatology evaluation. ALECIA HERNANDEZ Mar 21, 2017 12:10
--- NOTE | 2017-03-21 12:13 | Diagnostic Imaging Report ---
Indication: Dyspnea Comparison: 03/19/17 A single view chest radiograph was obtained. Findings: No definite infiltrate or pulmonary vascular congestion identified. The heart is enlarged. The aorta is mildly enlarged consistent with atherosclerotic vascular disease. The bones are osteopenic. Impression: No acute disease
[2017-03-21] MEDS ORDERED: D5NS 1,000 ML IV SCH (13:30)
[2017-03-21 14:00] LABS: MONOTEST Negative (Negative)
--- NOTE | 2017-03-21 14:04 | GI Progress Note ---
Assessment/Plan Problems: (1) LFTs abnormal ICD Codes: R79.89 - Other specified abnormal findings of blood chemistry SNOMED: 244679259 (2) Dehydration ICD Codes: E86.0 - Dehydration SNOMED: 29087958 (3) Weakness ICD Codes: R53.1 - Weakness SNOMED: 95496528 Status: unchanged Status Narrative Discussed with Dr. Wang. Assessment/Plan iron deficiency >> venofer elevated LFTs abdominal U/S >> unremarkable hepatitis panel >> negative facial swelling + urticaria >> allergic reaction to wine? push PO fu calorie count H2B repeat LFTs fu labs Subjective Subjective denies abdominal pain rash is better wants to go home Objective Last 24 Hour Vital Signs Date Time Temp Pulse Resp B/P Pulse Ox O2 Delivery O2 Flow Rate FiO2 03/21/17 12:00 97.9 71 20 108/69 100 Nasal Cannula 3.0 03/21/17 10:30 97.5 03/21/17 09:54 102.0 82 22 97/70 100 Nasal Cannula 3.0 03/21/17 09:38 102.0 03/21/17 08:55 102.6 150 22 117/63 100 Nasal Cannula 3.0 03/21/17 04:00 98.4 50 20 102/60 95 Room Air 03/21/17 00:00 99.1 84 18 99/58 99 Room Air 03/20/17 21:15 102.4 92 19 127/73 98 Room Air 03/20/17 18:00 99.0 03/20/17 16:00 100.6 83 18 124/58 98 Room Air Intake and Output 03/20/17 03/21/17 19:00 07:00 Intake Total 655 ml 1245 ml Output Total 600 ml 850 ml Balance 55 ml 395 ml Intake Oral 350 ml IV Total 655 ml 895 ml Output Urine Total 600 ml 850 ml # Voids 3 # Bowel Movements 2 1 Laboratory Tests Test 03/20/17 17:05 03/21/17 01:50 03/21/17 07:55 03/21/17 09:27 Herpes Simplex Virus I IgM Ab (IFA) Pending Herpes Simplex Virus II IgM Ab (IFA Pending Monoscreen Pending Leptospira Antibody Pending Varicella-Zoster IgM Antibody Pending Stool Occult Blood Negative (NEGATIVE) White Blood Count 4.5 K/UL (4.8-10.8) L Red Blood Count 3.46 M/UL (4.20-5.40) L Hemoglobin 10.6 G/DL (12.0-16.0) L Hematocrit 31.8 % (37.0-47.0) L Mean Corpuscular Volume 92 FL (80-99) Mean Corpuscular Hemoglobin 30.7 PG (27.0-31.0) Mean Corpuscular Hemoglobin Concent 33.4 G/DL (32.0-36.0) Red Cell Distribution Width 13.4 % (11.6-14.8) Platelet Count 103 K/UL (150-450) L Mean Platelet Volume 10.3 FL (6.5-10.1) H Neutrophils (%) (Auto) 68.8 % (45.0-75.0) Lymphocytes (%) (Auto) 14.7 % (20.0-45.0) L Monocytes (%) (Auto) 9.1 % (1.0-10.0) Eosinophils (%) (Auto) 7.1 % (0.0-3.0) H Basophils (%) (Auto) 0.3 % (0.0-2.0) Sodium Level 133 mEQ/L (135-145) L Potassium Level 3.8 mEQ/L (3.4-4.9) Chloride Level 105 mEQ/L (98-107) Carbon Dioxide Level 15 mEQ/L (20-30) L Anion Gap 13 (5-15) Blood Urea Nitrogen 21 mg/dL (7-23) Creatinine 1.9 mg/dL (0.5-0.9) H Estimat Glomerular Filtration Rate mL/min (>60) Glucose Level 114 mg/dL (74-106) H Calcium Level 7.5 mg/dL (8.6-10.2) L Total Bilirubin 0.3 mg/dL (0.0-1.2) Aspartate Amino Transf (AST/SGOT) 260 U/L (5-40) H Alanine Aminotransferase (ALT/SGPT) 184 U/L (3-33) H Alkaline Phosphatase 45 U/L (35-104) Total Protein 5.8 g/dL (6.6-8.7) L Albumin 3.3 g/dL (3.5-5.2) L Globulin 2.5 g/dL Albumin/Globulin Ratio 1.3 (1.0-2.7) Arterial Blood pH 7.400 (7.350-7.450) Arterial Blood Partial Pressure CO2 22.7 mmHg (35.0-45.0) *L Arterial Blood Partial Pressure O2 102.9 mmHg (75.0-100.0) H Arterial Blood HCO3 13.8 mmol/L (22.0-26.0) L Arterial Blood Oxygen Saturation 97.3 % (92.0-98.0) Arterial Blood Base Excess -9.3 Rubens Test Positive Height (Feet): 5 Height (Inches): 2.00 Weight (Pounds): 117 General Appearance: no apparent distress, alert, other - facial swelling Cardiovascular: normal rate Respiratory/Chest: normal breath sounds, no respiratory distress Abdominal Exam: normal bowel sounds, non tender, soft Extremities: normal range of motion Diane Carrizales N.P. Mar 21, 2017 14:04
--- NOTE | 2017-03-21 14:55 | Cardiac Electrophysiology PN ---
Subjective Subjective [id number]. Atrial fib with RVR Objective Last 24 Hour Vital Signs Date Time Temp Pulse Resp B/P Pulse Ox O2 Delivery O2 Flow Rate FiO2 03/21/17 14:45 Room Air 03/21/17 12:00 97.9 71 20 108/69 100 Nasal Cannula 3.0 03/21/17 10:30 97.5 03/21/17 09:54 102.0 82 22 97/70 100 Nasal Cannula 3.0 03/21/17 09:38 102.0 03/21/17 08:55 102.6 150 22 117/63 100 Nasal Cannula 3.0 03/21/17 04:00 98.4 50 20 102/60 95 Room Air 03/21/17 00:00 99.1 84 18 99/58 99 Room Air 03/20/17 21:15 102.4 92 19 127/73 98 Room Air 03/20/17 18:00 99.0 03/20/17 16:00 100.6 83 18 124/58 98 Room Air Intake and Output 03/20/17 03/21/17 19:00 07:00 Intake Total 655 ml 1245 ml Output Total 600 ml 850 ml Balance 55 ml 395 ml Intake Oral 350 ml IV Total 655 ml 895 ml Output Urine Total 600 ml 850 ml # Voids 3 # Bowel Movements 2 1 Laboratory Tests Test 03/20/17 17:05 03/21/17 01:50 03/21/17 07:55 03/21/17 09:27 Herpes Simplex Virus I IgM Ab (IFA) Pending Herpes Simplex Virus II IgM Ab (IFA Pending Monoscreen Negative (Negative) Leptospira Antibody Pending Varicella-Zoster IgM Antibody Pending Stool Occult Blood Negative (NEGATIVE) White Blood Count 4.5 K/UL (4.8-10.8) L Red Blood Count 3.46 M/UL (4.20-5.40) L Hemoglobin 10.6 G/DL (12.0-16.0) L Hematocrit 31.8 % (37.0-47.0) L Mean Corpuscular Volume 92 FL (80-99) Mean Corpuscular Hemoglobin 30.7 PG (27.0-31.0) Mean Corpuscular Hemoglobin Concent 33.4 G/DL (32.0-36.0) Red Cell Distribution Width 13.4 % (11.6-14.8) Platelet Count 103 K/UL (150-450) L Mean Platelet Volume 10.3 FL (6.5-10.1) H Neutrophils (%) (Auto) 68.8 % (45.0-75.0) Lymphocytes (%) (Auto) 14.7 % (20.0-45.0) L Monocytes (%) (Auto) 9.1 % (1.0-10.0) Eosinophils (%) (Auto) 7.1 % (0.0-3.0) H Basophils (%) (Auto) 0.3 % (0.0-2.0) Sodium Level 133 mEQ/L (135-145) L Potassium Level 3.8 mEQ/L (3.4-4.9) Chloride Level 105 mEQ/L (98-107) Carbon Dioxide Level 15 mEQ/L (20-30) L Anion Gap 13 (5-15) Blood Urea Nitrogen 21 mg/dL (7-23) Creatinine 1.9 mg/dL (0.5-0.9) H Estimat Glomerular Filtration Rate mL/min (>60) Glucose Level 114 mg/dL (74-106) H Calcium Level 7.5 mg/dL (8.6-10.2) L Total Bilirubin 0.3 mg/dL (0.0-1.2) Aspartate Amino Transf (AST/SGOT) 260 U/L (5-40) H Alanine Aminotransferase (ALT/SGPT) 184 U/L (3-33) H Alkaline Phosphatase 45 U/L (35-104) Total Protein 5.8 g/dL (6.6-8.7) L Albumin 3.3 g/dL (3.5-5.2) L Globulin 2.5 g/dL Albumin/Globulin Ratio 1.3 (1.0-2.7) Arterial Blood pH 7.400 (7.350-7.450) Arterial Blood Partial Pressure CO2 22.7 mmHg (35.0-45.0) *L Arterial Blood Partial Pressure O2 102.9 mmHg (75.0-100.0) H Arterial Blood HCO3 13.8 mmol/L (22.0-26.0) L Arterial Blood Oxygen Saturation 97.3 % (92.0-98.0) Arterial Blood Base Excess -9.3 Rubens Test Positive Microbiology Date/Time Source Procedure Growth Status 03/19/17 03:20 Blood Blood Culture - Preliminary NO GROWTH AFTER 48 HOURS Resulted 03/19/17 03:05 Blood Blood Culture - Preliminary NO GROWTH AFTER 48 HOURS Resulted 03/19/17 02:50 Urine,Clean Catch Urine Culture - Preliminary Mixed Gram Positive Organism Resulted RICK SHAFER Mar 21, 2017 14:55
--- NOTE | 2017-03-21 15:11 | Infectious Diseases Prog Note ---
Assessment/Plan Problems: (1) Skin rash Assessment & Plan: unclear etiology, suspect allergic reaction , with elevated sed rate and liver function test, screening for mononucleosis , herpes, HZV , lyme disease, spirochete is pending , will stop doxycycline empirically . screening for HIV, syphilis, and hepatitis is negative. infection work up is negative so far so she may benefit from systemic steroids , will start methylprednisolone for now and monitor symptoms (2) Sepsis Assessment & Plan: less likely with negative blood culture , will stop cefepime and doxycycline , since no clinical improvement , and start steroids for allergy with anaphylaxis (3) Dehydration Assessment & Plan: continue ivf for hydration (4) Weakness Assessment & Plan: recommend pt /ot eval (5) JOMAR (acute kidney injury) Assessment & Plan: due to dehydration, continue ivf , monitor UOP (6) Atrial fibrillation Assessment & Plan: continue tele monitor , and cardiac meds to control her rate , cardiology is following (7) Acute dyspnea Assessment & Plan: suspect due to allergic reaction with bronchospasm , will start steroids , pulmonary is following (8) UTI (urinary tract infection) Assessment & Plan: culture showed mixed contaminants , will stop cefepime empirically Subjective Constitutional: Reports: fatigue, fever HEENT: Reports: congestion, coryza Respiratory: Reports: shortness of breath Cardiovascular: Reports: palpitations Gastrointestinal/Abdominal: Reports: no symptoms Genitourinary: Reports: no symptoms Neurologic: Reports: no symptoms Psychiatric: Reports: no symptoms Skin: Reports: rash Endocrine: Reports: no symptoms Hematologic: Reports: no symptoms Musculoskeletal: Reports: no symptoms Allergies: Coded Allergies: No Known Allergies (Unverified , 03/19/17) Subjective she continues to have fever and skin rash diffuse all over her body, with facial swelling . Objective Vital Signs Last 24 Hour Vital Signs Date Time Temp Pulse Resp B/P Pulse Ox O2 Delivery O2 Flow Rate FiO2 03/21/17 14:45 Room Air 03/21/17 12:00 97.9 71 20 108/69 100 Nasal Cannula 3.0 03/21/17 10:30 97.5 03/21/17 09:54 102.0 82 22 97/70 100 Nasal Cannula 3.0 03/21/17 09:38 102.0 03/21/17 08:55 102.6 150 22 117/63 100 Nasal Cannula 3.0 03/21/17 04:00 98.4 50 20 102/60 95 Room Air 03/21/17 00:00 99.1 84 18 99/58 99 Room Air 03/20/17 21:15 102.4 92 19 127/73 98 Room Air 03/20/17 18:00 99.0 03/20/17 16:00 100.6 83 18 124/58 98 Room Air Height (Feet): 5 Height (Inches): 2.00 Weight (Pounds): 117 General Appearance: WD/WN, no acute distress HEENT: atraumatic, anicteric, mucous membranes moist, supple, no JVD, other - periorbital edema Respiratory/Chest: chest wall non-tender, normal breath sounds, no respiratory distress, no accessory muscle use, decreased breath sounds, expiratory wheezing Cardiovascular: normal peripheral pulses, normal rate, regular rhythm, no gallop/murmur, no JVD Abdomen: normal bowel sounds, soft, non tender, no organomegaly, non distended , no mass Extremities: no cyanosis, no clubbing Skin: rash, other - redness with erythema Microbiology Date/Time Source Procedure Growth Status 03/19/17 03:20 Blood Blood Culture - Preliminary NO GROWTH AFTER 48 HOURS Resulted 03/19/17 03:05 Blood Blood Culture - Preliminary NO GROWTH AFTER 48 HOURS Resulted 03/19/17 02:50 Urine,Clean Catch Urine Culture - Preliminary Mixed Gram Positive Organism Resulted Laboratory Tests Test 03/20/17 17:05 03/21/17 01:50 03/21/17 07:55 03/21/17 09:27 Herpes Simplex Virus I IgM Ab (IFA) Pending Herpes Simplex Virus II IgM Ab (IFA Pending Monoscreen Negative (Negative) Leptospira Antibody Pending Varicella-Zoster IgM Antibody Pending Stool Occult Blood Negative (NEGATIVE) White Blood Count 4.5 K/UL (4.8-10.8) L Red Blood Count 3.46 M/UL (4.20-5.40) L Hemoglobin 10.6 G/DL (12.0-16.0) L Hematocrit 31.8 % (37.0-47.0) L Mean Corpuscular Volume 92 FL (80-99) Mean Corpuscular Hemoglobin 30.7 PG (27.0-31.0) Mean Corpuscular Hemoglobin Concent 33.4 G/DL (32.0-36.0) Red Cell Distribution Width 13.4 % (11.6-14.8) Platelet Count 103 K/UL (150-450) L Mean Platelet Volume 10.3 FL (6.5-10.1) H Neutrophils (%) (Auto) 68.8 % (45.0-75.0) Lymphocytes (%) (Auto) 14.7 % (20.0-45.0) L Monocytes (%) (Auto) 9.1 % (1.0-10.0) Eosinophils (%) (Auto) 7.1 % (0.0-3.0) H Basophils (%) (Auto) 0.3 % (0.0-2.0) Sodium Level 133 mEQ/L (135-145) L Potassium Level 3.8 mEQ/L (3.4-4.9) Chloride Level 105 mEQ/L (98-107) Carbon Dioxide Level 15 mEQ/L (20-30) L Anion Gap 13 (5-15) Blood Urea Nitrogen 21 mg/dL (7-23) Creatinine 1.9 mg/dL (0.5-0.9) H Estimat Glomerular Filtration Rate mL/min (>60) Glucose Level 114 mg/dL (74-106) H Calcium Level 7.5 mg/dL (8.6-10.2) L Total Bilirubin 0.3 mg/dL (0.0-1.2) Aspartate Amino Transf (AST/SGOT) 260 U/L (5-40) H Alanine Aminotransferase (ALT/SGPT) 184 U/L (3-33) H Alkaline Phosphatase 45 U/L (35-104) Total Protein 5.8 g/dL (6.6-8.7) L Albumin 3.3 g/dL (3.5-5.2) L Globulin 2.5 g/dL Albumin/Globulin Ratio 1.3 (1.0-2.7) Arterial Blood pH 7.400 (7.350-7.450) Arterial Blood Partial Pressure CO2 22.7 mmHg (35.0-45.0) *L Arterial Blood Partial Pressure O2 102.9 mmHg (75.0-100.0) H Arterial Blood HCO3 13.8 mmol/L (22.0-26.0) L Arterial Blood Oxygen Saturation 97.3 % (92.0-98.0) Arterial Blood Base Excess -9.3 Rubens Test Positive Current Medications Medications (Trade) Dose Ordered Sig/Sandor Route PRN Reason Start Time Stop Time Status Last Admin Dose Admin Acetaminophen (Tylenol) 650 mg Q4H PRN ORAL Mild Pain/Temp > 100 03/19/17 09:15 04/18/17 09:14 03/21/17 08:39 Clonidine HCl (Catapres) 0.1 mg Q4H PRN ORAL bp over 160 syst 03/19/17 10:00 04/18/17 09:59 Dextrose/Sodium Chloride (D5ns) 1,000 ml @ 50 mls/hr Q20H IV 03/21/17 13:30 04/20/17 13:29 03/21/17 13:45 Diltiazem HCl (Cardizem) 30 mg EVERY 8 HOURS ORAL 03/21/17 22:00 04/20/17 21:59 UNV Diphenhydramine HCl (Benadryl) 25 mg Q6H PRN ORAL Itching 03/19/17 09:15 04/18/17 09:14 03/21/17 12:08 Hydrocortisone (Hydrocortisone) 1 applic Q6H PRN TOPIC Itching 03/19/17 11:00 04/18/17 10:59 03/19/17 11:37 Nystatin 5 ml 5 ml TID ORAL 03/19/17 18:00 03/26/17 17:59 03/21/17 13:00 Ondansetron HCl (Zofran) 4 mg Q6H PRN IVP Nausea & Vomiting 03/19/17 05:30 04/18/17 05:29 Ranitidine HCl (Zantac) 150 mg TWICE A DAY ORAL 03/19/17 10:00 04/18/17 09:59 03/21/17 09:11 Puja Patiño M.D. Mar 21, 2017 15:11
[2017-03-21 18:39] LABS: BAND NEUTROPHILS % (MANUAL) 33 % (0-8); BASOPHILS % (MANUAL) 0 % (0-2); EOSINOPHILS % (MANUAL) 4 % (0-3); LYMPHOCYTES % (MANUAL) 26 % (20-45); NEUTROPHILS % (MANUAL) 32 % (45-75); NUCLEATED RED BLOOD CELLS 1 /100 WBC; PLATELET ESTIMATE DECREASED; TOTAL CELLS COUNTED 100
[2017-03-21 18:40] LABS: ANISOCYTOSIS 1+; PLATELET MORPHOLOGY NORMAL; POLYCHROMASIA 1+
[2017-03-21 18:44] LABS: PATH BLOOD SMEAR/OMC SENT TO PATHOLOGIST
--- NOTE | 2017-03-21 21:45 | Consultation ---
DATE OF CONSULTATION: 03/21/2017 CARDIOLOGY CONSULTATION REFERRING PHYSICIAN: Bernabe Nuñez M.D. REASON FOR CONSULTATION: Atrial fibrillation with rapid ventricular response. History Of Present Illness: The patient is an 81-year-old lady with history of hypertension who was admitted on 03/19/2017 with increasing weakness and poor appetite. The patient had generalized rash, was felt to be allergic reaction to wine. The patient also was febrile at home. The patient was noted to be tachycardic and dyspneic and was transferred to [facility] for closer observation. Her EKG at 8:50 a.m. showed atrial fibrillation with rapid ventricular response at a rate of 150. The patient subsequently converted to sinus rhythm and a cardiac Electrophysiology consultation was obtained for further evaluation. PAST MEDICAL HISTORY: 1. Hypertension. 2. Gout. MEDICATIONS: Fosamax, allopurinol, aspirin, Nexium, and Benicar. REVIEW OF SYSTEMS: Review of systems was performed and was negative other than what was mentioned in the history of present illness. PHYSICAL EXAMINATION: Vital Signs: Blood pressure 108/69, pulse was 150 at 08:55 a.m. and currently is 71, respirations 18, and she is afebrile. HEAD AND NECK: No JVD. LUNGS: Decreased breath sounds. CARDIOVASCULAR: Regular S1 and S2 with no gallop. ABDOMEN: Soft. EXTREMITIES: Diffuse erythematous rash. Laboratory And Diagnostic Data: Her EKG at 8:50 a.m. from today showed atrial fibrillation with rapid ventricular response, rate of 150. His EKG from two days ago on 03/19/2017 at 3:24 a.m. showed sinus rhythm with anterior ischemia. Labs show white count of 4.4, hemoglobin 10.7, hematocrit 31.8, and platelet count of 103,000. Sodium 133, potassium 3.8, BUN of 21, creatinine 1.9, and glucose of 114. Her troponin is negative. ASSESSMENT AND PLAN: 1. Atrial fibrillation with rapid ventricular response. The patient converted spontaneously to sinus rhythm. Add Cardizem low dose to medical regimen. We will watch the patient on telemetry. Hold off on anticoagulation. The patient has no prior history of atrial fibrillation and has converted spontaneously. 2. Hypertension history. Again, add Cardizem 30 mg three times daily. 3. Allergic reaction with diffuse rash. 4. Renal failure . 5. Urinary tract infection and subsequent skin rash. Followed by Dr. Patiño for IV antibiotic with temperature max of 102.7 degrees. Thank you very much, Dr. Nuñez, for allowing me to participate in the care of this patient. Please do not hesitate to contact me for any questions regarding my evaluation. Mac Rajan M.D. DR: KALEE JOB#: [id number] CC:
--- NOTE | 2017-03-21 21:57 | General Progress Note ---
Assessment/Plan Problem List: (1) UTI (urinary tract infection) ICD Codes: N39.0 - Urinary tract infection, site not specified SNOMED: 23456385 Qualifiers: Qualified Codes: N39.0 - Urinary tract infection, site not specified (2) Skin rash ICD Codes: R21 - Rash and other nonspecific skin eruption SNOMED: 059911840, 770704147 (3) Weakness ICD Codes: R53.1 - Weakness SNOMED: 56925731 (4) Dehydration ICD Codes: E86.0 - Dehydration SNOMED: 73535721 (5) fever,rash (6) Sepsis ICD Codes: A41.9 - Sepsis, unspecified organism SNOMED: 24869762 Status: deteriorating Assessment/Plan no wheezing dehydration uti febrile hypoxic rash tachy transfered to [facility] consult called Subjective ROS Limited/Unobtainable: Yes Allergies: Coded Allergies: No Known Allergies (Unverified , 03/19/17) Objective Last 24 Hour Vital Signs Date Time Temp Pulse Resp B/P Pulse Ox O2 Delivery O2 Flow Rate FiO2 03/21/17 20:00 98.7 66 20 112/61 99 Room Air 03/21/17 16:42 64 03/21/17 16:00 97.7 75 20 100/51 100 Room Air 03/21/17 14:45 Room Air 03/21/17 12:00 64 03/21/17 12:00 97.9 71 20 108/69 100 Nasal Cannula 3.0 03/21/17 10:30 97.5 03/21/17 09:54 102.0 82 22 97/70 100 Nasal Cannula 3.0 03/21/17 09:38 102.0 03/21/17 09:30 97 03/21/17 08:55 102.6 150 22 117/63 100 Nasal Cannula 3.0 03/21/17 04:00 98.4 50 20 102/60 95 Room Air 03/21/17 00:00 99.1 84 18 99/58 99 Room Air Intake and Output 03/20/17 03/21/17 19:00 07:00 Intake Total 655 ml 1245 ml Output Total 600 ml 850 ml Balance 55 ml 395 ml Intake Oral 350 ml IV Total 655 ml 895 ml Output Urine Total 600 ml 850 ml # Voids 3 # Bowel Movements 2 1 Laboratory Tests 03/21/17 01:50: Stool Occult Blood Negative 03/21/17 07:55: White Blood Count 4.5L, Red Blood Count 3.46L, Hemoglobin 10.6L, Hematocrit 31.8L, Mean Corpuscular Volume 92, Mean Corpuscular Hemoglobin 30.7, Mean Corpuscular Hemoglobin Concent 33.4, Red Cell Distribution Width 13.4, Platelet Count 103L, Mean Platelet Volume 10.3H, Neutrophils (%) (Auto) 68.8, Lymphocytes (%) (Auto) 14.7L, Monocytes (%) (Auto) 9.1, Eosinophils (%) (Auto) 7.1H, Basophils (%) (Auto) 0.3, Differential Total Cells Counted 100, Neutrophils % (Manual) 32L, Lymphocytes % (Manual) 26, Monocytes % (Manual) 5, Eosinophils % (Manual) 4H, Basophils % (Manual) 0, Band Neutrophils 33H, Nucleated Red Blood Cells 1, Platelet Estimate DecreasedL, Platelet Morphology Normal, Polychromasia 1+, Anisocytosis 1+, Sodium Level 133L, Potassium Level 3.8, Chloride Level 105, Carbon Dioxide Level 15L, Anion Gap 13, Blood Urea Nitrogen 21, Creatinine 1.9H, Estimat Glomerular Filtration Rate , Glucose Level 114H, Calcium Level 7.5L, Total Bilirubin 0.3, Aspartate Amino Transf (AST /SGOT) 260H, Alanine Aminotransferase (ALT/SGPT) 184H, Alkaline Phosphatase 45, Lactate Dehydrogenase 746H, Total Protein 5.8L, Albumin 3.3L, Globulin 2.5, Albumin/Globulin Ratio 1.3 03/21/17 09:27: Arterial Blood pH 7.400, Arterial Blood Partial Pressure CO2 22.7*L, Arterial Blood Partial Pressure O2 102.9H, Arterial Blood HCO3 13.8L, Arterial Blood Oxygen Saturation 97.3, Arterial Blood Base Excess -9.3, Rubens Test Positive Height (Feet): 5 Height (Inches): 2.00 Weight (Pounds): 117 General Appearance: confused Respiratory/Chest: lungs clear Abdomen: soft Bernabe Nuñez MD Mar 21, 2017 21:57
[2017-03-21] MEDS ORDERED: Solu-MEDROL 125mg Inj IVP SCH (22:00)
[2017-03-21] MEDS: Solu-MEDROL 125mg Inj IVP SCH (22:30)
[2017-03-21] MEDS ORDERED: Tubing IV Secondary IV ONE (22:49)
[2017-03-21] MEDS ORDERED: D5NS 1000ml IV ONE (22:49)
[2017-03-21] MEDS ORDERED: NS 550ML IV ONE (22:49)
[2017-03-22] VITALS (7 sets, daily range): BP systolic 81–140; BP diastolic 52–67
[2017-03-22] MEDS: D5NS 1,000 ML IV SCH ×2 (04:01→22:01)
[2017-03-22] MEDS: Solu-MEDROL 125mg Inj IVP SCH ×4 (05:20→22:15)
[2017-03-22 06:52] LABS: ALANINE AMINOTRANSFERASE 179 U/L (3-33); ALBUMIN/GLOBULIN RATIO 1.4 (1.0-2.7); ANION GAP 15 (5-15); ASPARTATE AMINO TRANSFERASE 156 U/L (5-40); CALCIUM 7.9 mg/dL (8.6-10.2); CARBON DIOXIDE 17 mEQ/L (20-30); CHLORIDE 108 mEQ/L (98-107); CREATININE 1.5 mg/dL (0.5-0.9); HEMOLYSIS 3; POTASSIUM 4.1 mEQ/L (3.4-4.9); SODIUM 140 mEQ/L (135-145); TOTAL PROTEIN 6.1 g/dL (6.6-8.7)
[2017-03-22 06:58] LABS: BASOPHILS % (AUTO) 0.3 % (0.0-2.0); EOSINOPHILS % (AUTO) 0.6 % (0.0-3.0); LYMPHOCYTES % (AUTO) 18.1 % (20.0-45.0); MEAN CORPUSCULAR HEMOGLOBIN 30.1 PG (27.0-31.0); MEAN CORPUSCULAR HGB CONC 32.4 G/DL (32.0-36.0); MEAN CORPUSCULAR VOLUME 93 FL (80-99); MEAN PLATELET VOLUME 7.8 FL (6.5-10.1); MONOCYTES % (AUTO) 6.6 % (1.0-10.0); NEUTROPHILS % (AUTO) 74.5 % (45.0-75.0); PLATELET COUNT 108 K/UL (150-450); RED BLOOD COUNT 3.33 M/UL (4.20-5.40); RED CELL DISTRIBUTION WIDTH 13.5 % (11.6-14.8); WHITE BLOOD COUNT 10.4 K/UL (4.8-10.8)
[2017-03-22 07:08] LABS: THYROID STIMULATING HORMONE 0.255 uIU/mL (0.300-4.500)
[2017-03-22 07:47] LABS: TROPONIN I < 0.30 ng/mL (<=0.30)
--- NOTE | 2017-03-22 08:40 | General Progress Note ---
Assessment/Plan Problem List: (1) Anemia ICD Codes: D64.9 - Anemia, unspecified SNOMED: 787662853 (2) Skin rash ICD Codes: R21 - Rash and other nonspecific skin eruption SNOMED: 362630285, 478141286 (3) LFTs abnormal ICD Codes: R79.89 - Other specified abnormal findings of blood chemistry SNOMED: 295496870 (4) HTN (hypertension) ICD Codes: I10 - Essential (primary) hypertension SNOMED: 70713116 (5) Atrial fibrillation ICD Codes: I48.91 - Unspecified atrial fibrillation SNOMED: 91490114 Assessment/Plan tolerating diet LFTS improving iv iron may need GI procedures will fu Subjective ROS Limited/Unobtainable: Yes Allergies: Coded Allergies: No Known Allergies (Unverified , 03/19/17) Subjective no event Objective Last 24 Hour Vital Signs Date Time Temp Pulse Resp B/P Pulse Ox O2 Delivery O2 Flow Rate FiO2 03/22/17 08:00 97.9 58 18 81/52 97 Room Air 03/22/17 05:19 66 111/60 03/22/17 04:00 98.5 66 20 111/60 99 Room Air 03/22/17 00:00 99.0 71 21 105/58 98 Room Air 03/22/17 00:00 98.7 72 18 140/63 99 Room Air 03/21/17 23:48 66 03/21/17 22:29 72 140/63 03/21/17 20:00 98.7 66 20 112/61 99 Room Air 03/21/17 19:39 69 03/21/17 16:42 64 03/21/17 16:00 97.7 75 20 100/51 100 Room Air 03/21/17 14:45 Room Air 03/21/17 12:00 64 03/21/17 12:00 97.9 71 20 108/69 100 Nasal Cannula 3.0 03/21/17 10:30 97.5 03/21/17 09:54 102.0 82 22 97/70 100 Nasal Cannula 3.0 03/21/17 09:38 102.0 03/21/17 09:30 97 03/21/17 08:55 102.6 150 22 117/63 100 Nasal Cannula 3.0 Intake and Output 03/21/17 03/22/17 19:00 07:00 Intake Total 1175 ml 950 ml Output Total 1350 ml 825 ml Balance -175 ml 125 ml Intake Oral 600 ml 400 ml IV Total 575 ml 550 ml Output Urine Total 1350 ml 825 ml # Bowel Movements 2 Laboratory Tests 03/21/17 09:27: Arterial Blood pH 7.400, Arterial Blood Partial Pressure CO2 22.7*L, Arterial Blood Partial Pressure O2 102.9H, Arterial Blood HCO3 13.8L, Arterial Blood Oxygen Saturation 97.3, Arterial Blood Base Excess -9.3, Rubens Test Positive 03/22/17 04:55: White Blood Count 10.4#, Red Blood Count 3.33L, Hemoglobin 10.0L, Hematocrit 31.0L, Mean Corpuscular Volume 93, Mean Corpuscular Hemoglobin 30.1, Mean Corpuscular Hemoglobin Concent 32.4, Red Cell Distribution Width 13.5, Platelet Count 108L, Mean Platelet Volume 7.8, Neutrophils (%) (Auto) 74.5, Lymphocytes ( %) (Auto) 18.1L, Monocytes (%) (Auto) 6.6, Eosinophils (%) (Auto) 0.6, Basophils (%) (Auto) 0.3, Sodium Level 140, Potassium Level 4.1, Chloride Level 108H, Carbon Dioxide Level 17L, Anion Gap 15, Blood Urea Nitrogen 19, Creatinine 1.5H, Estimat Glomerular Filtration Rate , Glucose Level 149H, Calcium Level 7.9L, Total Bilirubin 0.4, Aspartate Amino Transf (AST/SGOT) 156H , Alanine Aminotransferase (ALT/SGPT) 179H, Alkaline Phosphatase 50, Troponin I < 0.30, Total Protein 6.1L, Albumin 3.6, Globulin 2.5, Albumin/Globulin Ratio 1.4, Thyroid Stimulating Hormone (TSH) 0.255L, Free Thyroxine 0.93 Height (Feet): 5 Height (Inches): 2.00 Weight (Pounds): 117 General Appearance: alert EENT: normal ENT inspection Neck: supple Cardiovascular: normal rate Respiratory/Chest: lungs clear Abdomen: normal bowel sounds, non tender, soft Extremities: non-tender JESUS LOCKHART Mar 22, 2017 08:40
[2017-03-22] MEDS: Nystatin Susp 500,000 units/5ml ORAL SCH ×3 (09:20→17:14)
[2017-03-22] MEDS: Hydrocortisone 1% Oint 30gm TOPIC PRN ×2 (10:58→23:00)
--- NOTE | 2017-03-22 12:53 | Nephrology Progress Note ---
Assessment/Plan Problem List: (1) Hyponatremia Assessment: ok (2) JOMAR (acute kidney injury) Assessment: improved (3) HTN (hypertension) (4) Anemia (5) Atrial fibrillation (6) UTI (urinary tract infection) Plan IVF watch BP follow labs Subjective Subjective In NAD Objective Objective Last 24 Hour Vital Signs Date Time Temp Pulse Resp B/P Pulse Ox O2 Delivery O2 Flow Rate FiO2 03/22/17 12:00 96.1 63 18 125/67 99 Room Air 03/22/17 08:00 97.9 58 18 81/52 97 Room Air 03/22/17 07:40 67 03/22/17 05:19 66 111/60 03/22/17 04:00 98.5 66 20 111/60 99 Room Air 03/22/17 00:00 99.0 71 21 105/58 98 Room Air 03/22/17 00:00 98.7 72 18 140/63 99 Room Air 03/21/17 23:48 66 03/21/17 22:29 72 140/63 03/21/17 20:00 98.7 66 20 112/61 99 Room Air 03/21/17 19:39 69 03/21/17 16:42 64 03/21/17 16:00 97.7 75 20 100/51 100 Room Air 03/21/17 14:45 Room Air Intake and Output 03/21/17 03/22/17 19:00 07:00 Intake Total 1175 ml 1000 ml Output Total 1350 ml 825 ml Balance -175 ml 175 ml Intake Oral 600 ml 400 ml IV Total 575 ml 600 ml Output Urine Total 1350 ml 825 ml # Bowel Movements 2 Laboratory Tests 03/22/17 04:55: White Blood Count 10.4#, Red Blood Count 3.33L, Hemoglobin 10.0L, Hematocrit 31.0L, Mean Corpuscular Volume 93, Mean Corpuscular Hemoglobin 30.1, Mean Corpuscular Hemoglobin Concent 32.4, Red Cell Distribution Width 13.5, Platelet Count 108L, Mean Platelet Volume 7.8, Neutrophils (%) (Auto) 74.5, Lymphocytes ( %) (Auto) 18.1L, Monocytes (%) (Auto) 6.6, Eosinophils (%) (Auto) 0.6, Basophils (%) (Auto) 0.3, Sodium Level 140, Potassium Level 4.1, Chloride Level 108H, Carbon Dioxide Level 17L, Anion Gap 15, Blood Urea Nitrogen 19, Creatinine 1.5H, Estimat Glomerular Filtration Rate , Glucose Level 149H, Calcium Level 7.9L, Total Bilirubin 0.4, Aspartate Amino Transf (AST/SGOT) 156H , Alanine Aminotransferase (ALT/SGPT) 179H, Alkaline Phosphatase 50, Troponin I < 0.30, Total Protein 6.1L, Albumin 3.6, Globulin 2.5, Albumin/Globulin Ratio 1.4, Thyroid Stimulating Hormone (TSH) 0.255L, Free Thyroxine 0.93 Height (Feet): 5 Height (Inches): 2.00 Weight (Pounds): 117 Cardiovascular: normal rate Respiratory/Chest: lungs clear Extremities: other - no edema KENDRA STARKS Mar 22, 2017 12:53
--- NOTE | 2017-03-22 13:57 | Pulmonology Progress Note ---
Assessment/Plan Problems: (1) Sepsis (2) Acute dyspnea (3) Dermatitis (4) Tachycardia (5) HTN (hypertension) Subjective Allergies: Coded Allergies: No Known Allergies (Unverified , 03/19/17) Objective Last 24 Hour Vital Signs Date Time Temp Pulse Resp B/P Pulse Ox O2 Delivery O2 Flow Rate FiO2 03/22/17 13:26 69 115/64 03/22/17 13:17 69 20 115/64 98 Room Air 03/22/17 12:00 96.1 63 18 125/67 99 Room Air 03/22/17 08:00 97.9 58 18 81/52 97 Room Air 03/22/17 07:40 67 03/22/17 05:19 66 111/60 03/22/17 04:00 98.5 66 20 111/60 99 Room Air 03/22/17 00:00 99.0 71 21 105/58 98 Room Air 03/22/17 00:00 98.7 72 18 140/63 99 Room Air 03/21/17 23:48 66 03/21/17 22:29 72 140/63 03/21/17 20:00 98.7 66 20 112/61 99 Room Air 03/21/17 19:39 69 03/21/17 16:42 64 03/21/17 16:00 97.7 75 20 100/51 100 Room Air 03/21/17 14:45 Room Air Intake and Output 03/21/17 03/22/17 19:00 07:00 Intake Total 1175 ml 1000 ml Output Total 1350 ml 825 ml Balance -175 ml 175 ml Intake Oral 600 ml 400 ml IV Total 575 ml 600 ml Output Urine Total 1350 ml 825 ml # Bowel Movements 2 Laboratory Tests 03/22/17 04:55: White Blood Count 10.4#, Red Blood Count 3.33L, Hemoglobin 10.0L, Hematocrit 31.0L, Mean Corpuscular Volume 93, Mean Corpuscular Hemoglobin 30.1, Mean Corpuscular Hemoglobin Concent 32.4, Red Cell Distribution Width 13.5, Platelet Count 108L, Mean Platelet Volume 7.8, Neutrophils (%) (Auto) 74.5, Lymphocytes ( %) (Auto) 18.1L, Monocytes (%) (Auto) 6.6, Eosinophils (%) (Auto) 0.6, Basophils (%) (Auto) 0.3, Sodium Level 140, Potassium Level 4.1, Chloride Level 108H, Carbon Dioxide Level 17L, Anion Gap 15, Blood Urea Nitrogen 19, Creatinine 1.5H, Estimat Glomerular Filtration Rate , Glucose Level 149H, Calcium Level 7.9L, Total Bilirubin 0.4, Aspartate Amino Transf (AST/SGOT) 156H , Alanine Aminotransferase (ALT/SGPT) 179H, Alkaline Phosphatase 50, Troponin I < 0.30, Total Protein 6.1L, Albumin 3.6, Globulin 2.5, Albumin/Globulin Ratio 1.4, Thyroid Stimulating Hormone (TSH) 0.255L, Free Thyroxine 0.93 Current Medications Medications (Trade) Dose Ordered Sig/Sandor Route PRN Reason Start Time Stop Time Status Last Admin Dose Admin Acetaminophen (Tylenol) 650 mg Q4H PRN ORAL Mild Pain/Temp > 100 03/21/17 18:00 04/20/17 17:59 Clonidine HCl (Catapres) 0.1 mg Q4H PRN ORAL sbp over 160 systolic 03/21/17 18:00 04/20/17 17:59 Dextrose/Sodium Chloride (D5ns) 1,000 ml @ 50 mls/hr Q20H IV 03/21/17 18:15 04/20/17 18:14 03/22/17 04:01 Diltiazem HCl (Cardizem) 30 mg EVERY 8 HOURS ORAL 03/21/17 22:00 04/20/17 21:59 03/22/17 13:26 Diphenhydramine HCl (Benadryl) 25 mg Q6H PRN ORAL Itching 03/21/17 18:00 04/20/17 17:59 03/22/17 05:16 Hydrocortisone (Hydrocortisone) 1 applic Q6H PRN TOPIC Itching 03/21/17 18:00 04/20/17 17:59 03/22/17 10:58 Methylprednisolone Sodium Succinate (Solu-MEDROL) 60 mg EVERY 8 HOURS IVP 03/21/17 22:00 04/20/17 21:59 03/22/17 13:26 Nystatin (Nystatin) 5 ml TID ORAL 03/21/17 18:00 03/28/17 17:59 03/22/17 13:23 Ondansetron HCl (Zofran) 4 mg Q6H PRN IVP Nausea & Vomiting 03/21/17 18:00 04/20/17 17:59 Ranitidine HCl (Zantac) 150 mg TWICE A DAY ORAL 03/21/17 18:00 04/20/17 17:59 03/22/17 09:20 ALEICA HERNANDEZ Mar 22, 2017 13:57
--- NOTE | 2017-03-22 15:09 | Infectious Diseases Prog Note ---
Assessment/Plan Problems: (1) Skin rash Assessment & Plan: unclear etiology, suspect allergic reaction , with elevated sed rate and liver function test, screening for mononucleosis is negative , and for herpes, HZV , lyme disease, spirochete is pending . screening for HIV, syphilis, and hepatitis is negative. infection work up is negative so far so she was started on systemic steroids , with methylprednisolone and her symptoms improved (2) Sepsis Assessment & Plan: less likely with negative blood culture , will stop cefepime and doxycycline , since no clinical improvement , and start steroids for allergy with anaphylaxis (3) Dehydration Assessment & Plan: continue ivf for hydration (4) Weakness Assessment & Plan: recommend pt /ot eval (5) JOMAR (acute kidney injury) Assessment & Plan: due to dehydration, continue ivf , monitor UOP (6) Atrial fibrillation Assessment & Plan: continue tele monitor , and cardiac meds to control her rate , cardiology is following (7) Acute dyspnea Assessment & Plan: suspect due to allergic reaction with bronchospasm , will start steroids , pulmonary is following (8) UTI (urinary tract infection) Assessment & Plan: culture showed mixed contaminants , will stop cefepime empirically Subjective Constitutional: Reports: fatigue HEENT: Reports: congestion, other - periorbital edema Respiratory: Reports: no symptoms Breasts: Reports: no symptoms Cardiovascular: Reports: no symptoms Gastrointestinal/Abdominal: Reports: no symptoms Genitourinary: Reports: no symptoms Neurologic: Reports: no symptoms Psychiatric: Reports: no symptoms Skin: Reports: rash Endocrine: Reports: no symptoms Hematologic: Reports: no symptoms Allergies: Coded Allergies: No Known Allergies (Unverified , 03/19/17) Subjective she continues to have fever and skin rash diffuse all over her body, with facial swelling . Objective Vital Signs Last 24 Hour Vital Signs Date Time Temp Pulse Resp B/P Pulse Ox O2 Delivery O2 Flow Rate FiO2 03/22/17 13:26 69 115/64 03/22/17 13:17 69 20 115/64 98 Room Air 03/22/17 12:00 96.1 63 18 125/67 99 Room Air 03/22/17 08:00 97.9 58 18 81/52 97 Room Air 03/22/17 07:40 67 03/22/17 05:19 66 111/60 03/22/17 04:00 98.5 66 20 111/60 99 Room Air 03/22/17 00:00 99.0 71 21 105/58 98 Room Air 03/22/17 00:00 98.7 72 18 140/63 99 Room Air 03/21/17 23:48 66 03/21/17 22:29 72 140/63 03/21/17 20:00 98.7 66 20 112/61 99 Room Air 03/21/17 19:39 69 03/21/17 16:42 64 03/21/17 16:00 97.7 75 20 100/51 100 Room Air Height (Feet): 5 Height (Inches): 2.00 Weight (Pounds): 117 General Appearance: no acute distress, cachetic, other - facial redness and swelling HEENT: atraumatic, anicteric, mucous membranes moist, PERRL, EOMI, supple, no JVD Respiratory/Chest: lungs clear, normal breath sounds, no respiratory distress, no accessory muscle use, decreased breath sounds Cardiovascular: normal peripheral pulses, normal rate, regularly irregular, no gallop/murmur, no JVD Abdomen: normal bowel sounds, soft, non tender, no organomegaly, non distended , no mass Extremities: no cyanosis, no clubbing Skin: rash Neurologic/Psychiatric: alert Laboratory Tests Test 03/22/17 04:55 White Blood Count 10.4 K/UL (4.8-10.8) # Red Blood Count 3.33 M/UL (4.20-5.40) L Hemoglobin 10.0 G/DL (12.0-16.0) L Hematocrit 31.0 % (37.0-47.0) L Mean Corpuscular Volume 93 FL (80-99) Mean Corpuscular Hemoglobin 30.1 PG (27.0-31.0) Mean Corpuscular Hemoglobin Concent 32.4 G/DL (32.0-36.0) Red Cell Distribution Width 13.5 % (11.6-14.8) Platelet Count 108 K/UL (150-450) L Mean Platelet Volume 7.8 FL (6.5-10.1) Neutrophils (%) (Auto) 74.5 % (45.0-75.0) Lymphocytes (%) (Auto) 18.1 % (20.0-45.0) L Monocytes (%) (Auto) 6.6 % (1.0-10.0) Eosinophils (%) (Auto) 0.6 % (0.0-3.0) Basophils (%) (Auto) 0.3 % (0.0-2.0) Sodium Level 140 mEQ/L (135-145) Potassium Level 4.1 mEQ/L (3.4-4.9) Chloride Level 108 mEQ/L (98-107) H Carbon Dioxide Level 17 mEQ/L (20-30) L Anion Gap 15 (5-15) Blood Urea Nitrogen 19 mg/dL (7-23) Creatinine 1.5 mg/dL (0.5-0.9) H Estimat Glomerular Filtration Rate mL/min (>60) Glucose Level 149 mg/dL (74-106) H Calcium Level 7.9 mg/dL (8.6-10.2) L Total Bilirubin 0.4 mg/dL (0.0-1.2) Aspartate Amino Transf (AST/SGOT) 156 U/L (5-40) H Alanine Aminotransferase (ALT/SGPT) 179 U/L (3-33) H Alkaline Phosphatase 50 U/L (35-104) Troponin I < 0.30 ng/mL (<=0.30) Total Protein 6.1 g/dL (6.6-8.7) L Albumin 3.6 g/dL (3.5-5.2) Globulin 2.5 g/dL Albumin/Globulin Ratio 1.4 (1.0-2.7) Thyroid Stimulating Hormone (TSH) 0.255 uIU/mL (0.300-4.500) Free Thyroxine 0.93 ng/dL (0.86-1.85) Current Medications Medications (Trade) Dose Ordered Sig/Sandor Route PRN Reason Start Time Stop Time Status Last Admin Dose Admin Acetaminophen (Tylenol) 650 mg Q4H PRN ORAL Mild Pain/Temp > 100 03/21/17 18:00 04/20/17 17:59 Clonidine HCl (Catapres) 0.1 mg Q4H PRN ORAL sbp over 160 systolic 03/21/17 18:00 04/20/17 17:59 Dextrose/Sodium Chloride (D5ns) 1,000 ml @ 50 mls/hr Q20H IV 03/21/17 18:15 04/20/17 18:14 03/22/17 04:01 Diltiazem HCl (Cardizem) 30 mg EVERY 8 HOURS ORAL 03/21/17 22:00 04/20/17 21:59 03/22/17 13:26 Diphenhydramine HCl (Benadryl) 25 mg Q6H PRN ORAL Itching 03/21/17 18:00 04/20/17 17:59 03/22/17 05:16 Hydrocortisone (Hydrocortisone) 1 applic Q6H PRN TOPIC Itching 03/21/17 18:00 04/20/17 17:59 03/22/17 10:58 Methylprednisolone Sodium Succinate (Solu-MEDROL) 60 mg EVERY 8 HOURS IVP 03/21/17 22:00 04/20/17 21:59 03/22/17 13:26 Nystatin (Nystatin) 5 ml TID ORAL 03/21/17 18:00 03/28/17 17:59 03/22/17 13:23 Ondansetron HCl (Zofran) 4 mg Q6H PRN IVP Nausea & Vomiting 03/21/17 18:00 04/20/17 17:59 Ranitidine HCl (Zantac) 150 mg TWICE A DAY ORAL 03/21/17 18:00 04/20/17 17:59 03/22/17 09:20 Puja Patiño M.D. Mar 22, 2017 15:09
--- NOTE | 2017-03-22 18:03 | General Progress Note ---
Assessment/Plan Problem List: (1) UTI (urinary tract infection) ICD Codes: N39.0 - Urinary tract infection, site not specified SNOMED: 54734573 Qualifiers: Qualified Codes: N39.0 - Urinary tract infection, site not specified (2) Skin rash ICD Codes: R21 - Rash and other nonspecific skin eruption SNOMED: 645312607, 040722191 (3) Weakness ICD Codes: R53.1 - Weakness SNOMED: 62130555 (4) Dehydration ICD Codes: E86.0 - Dehydration SNOMED: 05993795 (5) fever,rash (6) Sepsis ICD Codes: A41.9 - Sepsis, unspecified organism SNOMED: 83761267 Status: progressing Assessment/Plan rash improving s/o steroids afebrile azotemia no acute events Subjective ROS Limited/Unobtainable: Yes Constitutional: Reports: no symptoms Allergies: Coded Allergies: No Known Allergies (Unverified , 03/19/17) Objective Last 24 Hour Vital Signs Date Time Temp Pulse Resp B/P Pulse Ox O2 Delivery O2 Flow Rate FiO2 03/22/17 16:00 62 03/22/17 16:00 96.6 59 18 103/63 100 Room Air 03/22/17 13:26 69 115/64 03/22/17 13:17 69 20 115/64 98 Room Air 03/22/17 12:00 96.1 63 18 125/67 99 Room Air 03/22/17 11:37 61 03/22/17 08:00 97.9 58 18 81/52 97 Room Air 03/22/17 07:40 67 03/22/17 05:19 66 111/60 03/22/17 04:00 98.5 66 20 111/60 99 Room Air 03/22/17 00:00 99.0 71 21 105/58 98 Room Air 03/22/17 00:00 98.7 72 18 140/63 99 Room Air 03/21/17 23:48 66 03/21/17 22:29 72 140/63 03/21/17 20:00 98.7 66 20 112/61 99 Room Air 03/21/17 19:39 69 Intake and Output 03/21/17 03/22/17 19:00 07:00 Intake Total 1175 ml 1000 ml Output Total 1350 ml 825 ml Balance -175 ml 175 ml Intake Oral 600 ml 400 ml IV Total 575 ml 600 ml Output Urine Total 1350 ml 825 ml # Bowel Movements 2 Laboratory Tests 03/22/17 04:55: White Blood Count 10.4#, Red Blood Count 3.33L, Hemoglobin 10.0L, Hematocrit 31.0L, Mean Corpuscular Volume 93, Mean Corpuscular Hemoglobin 30.1, Mean Corpuscular Hemoglobin Concent 32.4, Red Cell Distribution Width 13.5, Platelet Count 108L, Mean Platelet Volume 7.8, Neutrophils (%) (Auto) 74.5, Lymphocytes ( %) (Auto) 18.1L, Monocytes (%) (Auto) 6.6, Eosinophils (%) (Auto) 0.6, Basophils (%) (Auto) 0.3, Sodium Level 140, Potassium Level 4.1, Chloride Level 108H, Carbon Dioxide Level 17L, Anion Gap 15, Blood Urea Nitrogen 19, Creatinine 1.5H, Estimat Glomerular Filtration Rate , Glucose Level 149H, Calcium Level 7.9L, Total Bilirubin 0.4, Aspartate Amino Transf (AST/SGOT) 156H , Alanine Aminotransferase (ALT/SGPT) 179H, Alkaline Phosphatase 50, Troponin I < 0.30, Total Protein 6.1L, Albumin 3.6, Globulin 2.5, Albumin/Globulin Ratio 1.4, Thyroid Stimulating Hormone (TSH) 0.255L, Free Thyroxine 0.93 Height (Feet): 5 Height (Inches): 2.00 Weight (Pounds): 117 Cardiovascular: regular rhythm Respiratory/Chest: lungs clear Bernabe Nuñez MD Mar 22, 2017 18:03
[2017-03-23] VITALS: BP 100/62
[2017-03-23 04:00] VITALS: BP 123/64
[2017-03-23 05:04] LABS: BASOPHILS % (AUTO) 0.3 % (0.0-2.0); EOSINOPHILS % (AUTO) 0.1 % (0.0-3.0); LYMPHOCYTES % (AUTO) 13.6 % (20.0-45.0); MEAN CORPUSCULAR HEMOGLOBIN 30.8 PG (27.0-31.0); MEAN CORPUSCULAR HGB CONC 33.5 G/DL (32.0-36.0); MEAN CORPUSCULAR VOLUME 92 FL (80-99); MEAN PLATELET VOLUME 8.4 FL (6.5-10.1); MONOCYTES % (AUTO) 6.8 % (1.0-10.0); NEUTROPHILS % (AUTO) 79.1 % (45.0-75.0); PLATELET COUNT 130 K/UL (150-450); RED BLOOD COUNT 3.01 M/UL (4.20-5.40); RED CELL DISTRIBUTION WIDTH 13.7 % (11.6-14.8); WHITE BLOOD COUNT 13.1 K/UL (4.8-10.8)
[2017-03-23] MEDS: Solu-MEDROL 125mg Inj IVP SCH ×3 (05:58→21:54)
[2017-03-23 08:57] VITALS: BP 126/73
[2017-03-23] MEDS: Nystatin Susp 500,000 units/5ml ORAL SCH ×3 (09:00→17:14)
--- NOTE | 2017-03-23 10:11 | General Progress Note ---
Assessment/Plan Problem List: (1) Anemia ICD Codes: D64.9 - Anemia, unspecified SNOMED: 997262596 (2) Skin rash ICD Codes: R21 - Rash and other nonspecific skin eruption SNOMED: 403863250, 094884117 (3) LFTs abnormal ICD Codes: R79.89 - Other specified abnormal findings of blood chemistry SNOMED: 381060052 (4) HTN (hypertension) ICD Codes: I10 - Essential (primary) hypertension SNOMED: 52372630 (5) Atrial fibrillation ICD Codes: I48.91 - Unspecified atrial fibrillation SNOMED: 96560677 Assessment/Plan tolerating diet LFTS improving iv iron stool ob negative will need EGD and colonoscopy either as in patient and if dc then as out patient Subjective ROS Limited/Unobtainable: Yes Allergies: Coded Allergies: No Known Allergies (Unverified , 03/19/17) Subjective no event Objective Last 24 Hour Vital Signs Date Time Temp Pulse Resp B/P Pulse Ox O2 Delivery O2 Flow Rate FiO2 03/23/17 08:57 97.7 66 18 126/73 100 Room Air 03/23/17 05:26 58 102/64 03/23/17 04:00 66 03/23/17 04:00 98.0 66 19 123/64 98 Room Air 03/23/17 00:00 97.0 70 19 100/62 100 Room Air 03/22/17 23:36 70 03/22/17 22:00 55 100/56 03/22/17 20:00 97.0 67 18 108/64 100 Room Air 03/22/17 19:14 63 03/22/17 16:00 62 03/22/17 16:00 96.6 59 18 103/63 100 Room Air 03/22/17 13:26 69 115/64 03/22/17 13:17 69 20 115/64 98 Room Air 03/22/17 12:00 96.1 63 18 125/67 99 Room Air 03/22/17 11:37 61 Intake and Output 03/22/17 03/23/17 19:00 07:00 Intake Total 1120 ml 750 ml Output Total 802 ml 1 ml Balance 318 ml 749 ml Intake Oral 520 ml 200 ml IV Total 600 ml 550 ml Output Urine Total 800 ml Stool Total 2 ml 1 ml # Voids 3 Laboratory Tests 03/23/17 04:15: White Blood Count 13.1H, Red Blood Count 3.01L, Hemoglobin 9.3L, Hematocrit 27.7L, Mean Corpuscular Volume 92, Mean Corpuscular Hemoglobin 30.8, Mean Corpuscular Hemoglobin Concent 33.5, Red Cell Distribution Width 13.7, Platelet Count 130L, Mean Platelet Volume 8.4, Neutrophils (%) (Auto) 79.1H, Lymphocytes (%) (Auto) 13.6L, Monocytes (%) (Auto) 6.8, Eosinophils (%) (Auto) 0.1, Basophils (%) (Auto) 0.3, Carcinoembryonic Antigen 3.7H Height (Feet): 5 Height (Inches): 2.00 Weight (Pounds): 117 General Appearance: alert EENT: normal ENT inspection Neck: supple Cardiovascular: normal rate Respiratory/Chest: decreased breath sounds Abdomen: normal bowel sounds, non tender, soft Extremities: non-tender JESUS LOCKHART Mar 23, 2017 10:11
[2017-03-23] MEDS ORDERED: D5NS 1000ml IV ONE (11:01)
[2017-03-23 12:00] VITALS: BP 117/66
--- NOTE | 2017-03-23 13:35 | Nephrology Progress Note ---
Assessment/Plan Problem List: (1) Hyponatremia Assessment: ok (2) JOMAR (acute kidney injury) Assessment: improved (3) HTN (hypertension) (4) Anemia (5) Atrial fibrillation (6) UTI (urinary tract infection) (7) Skin rash Plan IVF watch BP follow labs Discussed with ID Subjective Subjective In NAD Objective Objective Last 24 Hour Vital Signs Date Time Temp Pulse Resp B/P Pulse Ox O2 Delivery O2 Flow Rate FiO2 03/23/17 12:00 98.1 68 16 117/66 100 Room Air 03/23/17 08:57 97.7 66 18 126/73 100 Room Air 03/23/17 07:47 71 03/23/17 05:26 58 102/64 03/23/17 04:00 66 03/23/17 04:00 98.0 66 19 123/64 98 Room Air 03/23/17 00:00 97.0 70 19 100/62 100 Room Air 03/22/17 23:36 70 03/22/17 22:00 55 100/56 03/22/17 20:00 97.0 67 18 108/64 100 Room Air 03/22/17 19:14 63 03/22/17 16:00 62 03/22/17 16:00 96.6 59 18 103/63 100 Room Air Intake and Output 03/22/17 03/23/17 19:00 07:00 Intake Total 1120 ml 750 ml Output Total 802 ml 1 ml Balance 318 ml 749 ml Intake Oral 520 ml 200 ml IV Total 600 ml 550 ml Output Urine Total 800 ml Stool Total 2 ml 1 ml # Voids 3 Laboratory Tests 03/23/17 04:15: White Blood Count 13.1H, Red Blood Count 3.01L, Hemoglobin 9.3L, Hematocrit 27.7L, Mean Corpuscular Volume 92, Mean Corpuscular Hemoglobin 30.8, Mean Corpuscular Hemoglobin Concent 33.5, Red Cell Distribution Width 13.7, Platelet Count 130L, Mean Platelet Volume 8.4, Neutrophils (%) (Auto) 79.1H, Lymphocytes (%) (Auto) 13.6L, Monocytes (%) (Auto) 6.8, Eosinophils (%) (Auto) 0.1, Basophils (%) (Auto) 0.3, Carcinoembryonic Antigen 3.7H Height (Feet): 5 Height (Inches): 2.00 Weight (Pounds): 117 Cardiovascular: normal rate Respiratory/Chest: lungs clear Extremities: other - no edema KENDRA STARKS Mar 23, 2017 13:35
[2017-03-23 16:00] VITALS: BP 126/73
--- NOTE | 2017-03-23 16:17 | Pulmonology Progress Note ---
Assessment/Plan Problems: (1) Sepsis (2) Acute dyspnea (3) Dermatitis (4) Tachycardia (5) HTN (hypertension) Subjective Allergies: Coded Allergies: No Known Allergies (Unverified , 03/19/17) Objective Last 24 Hour Vital Signs Date Time Temp Pulse Resp B/P Pulse Ox O2 Delivery O2 Flow Rate FiO2 03/23/17 13:53 74 134/76 03/23/17 12:00 98.1 68 16 117/66 100 Room Air 03/23/17 11:27 73 03/23/17 08:57 97.7 66 18 126/73 100 Room Air 03/23/17 07:47 71 03/23/17 05:26 58 102/64 03/23/17 04:00 66 03/23/17 04:00 98.0 66 19 123/64 98 Room Air 03/23/17 00:00 97.0 70 19 100/62 100 Room Air 03/22/17 23:36 70 03/22/17 22:00 55 100/56 03/22/17 20:00 97.0 67 18 108/64 100 Room Air 03/22/17 19:14 63 Intake and Output 03/22/17 03/23/17 19:00 07:00 Intake Total 1120 ml 800 ml Output Total 802 ml 1 ml Balance 318 ml 799 ml Intake Oral 520 ml 200 ml IV Total 600 ml 600 ml Output Urine Total 800 ml Stool Total 2 ml 1 ml # Voids 3 Laboratory Tests 03/23/17 04:15: White Blood Count 13.1H, Red Blood Count 3.01L, Hemoglobin 9.3L, Hematocrit 27.7L, Mean Corpuscular Volume 92, Mean Corpuscular Hemoglobin 30.8, Mean Corpuscular Hemoglobin Concent 33.5, Red Cell Distribution Width 13.7, Platelet Count 130L, Mean Platelet Volume 8.4, Neutrophils (%) (Auto) 79.1H, Lymphocytes (%) (Auto) 13.6L, Monocytes (%) (Auto) 6.8, Eosinophils (%) (Auto) 0.1, Basophils (%) (Auto) 0.3, Carcinoembryonic Antigen 3.7H Current Medications Medications (Trade) Dose Ordered Sig/Sandor Route PRN Reason Start Time Stop Time Status Last Admin Dose Admin Acetaminophen (Tylenol) 650 mg Q4H PRN ORAL Mild Pain/Temp > 100 03/21/17 18:00 04/20/17 17:59 Clonidine HCl (Catapres) 0.1 mg Q4H PRN ORAL sbp over 160 systolic 03/21/17 18:00 04/20/17 17:59 Dextrose/Sodium Chloride (D5ns) 1,000 ml @ 50 mls/hr Q20H IV 03/21/17 18:15 04/20/17 18:14 03/22/17 22:01 Diltiazem HCl (Cardizem) 30 mg EVERY 8 HOURS ORAL 03/21/17 22:00 04/20/17 21:59 03/23/17 13:53 Diphenhydramine HCl (Benadryl) 25 mg Q6H PRN ORAL Itching 03/21/17 18:00 04/20/17 17:59 03/23/17 09:01 Hydrocortisone (Hydrocortisone) 1 applic Q6H PRN TOPIC Itching 03/21/17 18:00 04/20/17 17:59 03/22/17 23:00 Methylprednisolone Sodium Succinate (Solu-MEDROL) 60 mg EVERY 8 HOURS IVP 03/23/17 06:00 04/22/17 05:59 03/23/17 13:54 Nystatin (Nystatin) 5 ml TID ORAL 03/21/17 18:00 03/28/17 17:59 03/23/17 13:46 Ondansetron HCl (Zofran) 4 mg Q6H PRN IVP Nausea & Vomiting 03/21/17 18:00 04/20/17 17:59 Ranitidine HCl (Zantac) 150 mg TWICE A DAY ORAL 03/21/17 18:00 04/20/17 17:59 03/23/17 09:00 ALECIA HERNANDEZ Mar 23, 2017 16:17
[2017-03-23] MEDS: Hydrocortisone 1% Oint 30gm TOPIC PRN (17:15)
[2017-03-23 20:00] VITALS: BP 127/63
--- NOTE | 2017-03-23 20:35 | Infectious Diseases Prog Note ---
Assessment/Plan Problems: (1) Skin rash Assessment & Plan: suspect allergic reaction due to herbal meds she drank from a friend at home , now improving on steroids , screening for mononucleosis is negative , and for herpes, HZV , lyme disease, spirochete is pending . screening for HIV, syphilis, and hepatitis is negative. infection work up is negative so far , will taper down steroids tomorrow (2) Sepsis Assessment & Plan: less likely with negative blood culture , off antibiotics , on pulse dose of steroids for allergy with anaphylaxis (3) JOMAR (acute kidney injury) Assessment & Plan: due to dehydration, continue ivf , monitor UOP (4) Atrial fibrillation Assessment & Plan: continue tele monitor , and cardiac meds to control her rate , cardiology is following (5) Acute dyspnea Assessment & Plan: suspect due to allergic reaction with bronchospasm , will start steroids , pulmonary is following (6) UTI (urinary tract infection) Assessment & Plan: culture showed mixed contaminants , S/P cefepime treatment Subjective Constitutional: Reports: no symptoms HEENT: Reports: no symptoms Respiratory: Reports: no symptoms Cardiovascular: Reports: no symptoms Gastrointestinal/Abdominal: Reports: no symptoms Genitourinary: Reports: no symptoms Neurologic: Reports: no symptoms Psychiatric: Reports: no symptoms Skin: Reports: rash Endocrine: Reports: no symptoms Allergies: Coded Allergies: No Known Allergies (Unverified , 03/19/17) Subjective she continues to have fever and skin rash diffuse all over her body, with facial swelling . Objective Vital Signs Last 24 Hour Vital Signs Date Time Temp Pulse Resp B/P Pulse Ox O2 Delivery O2 Flow Rate FiO2 03/23/17 20:00 97.0 58 18 127/63 99 Room Air 03/23/17 16:00 73 03/23/17 16:00 97.6 69 16 126/73 99 Room Air 03/23/17 13:53 74 134/76 03/23/17 12:00 98.1 68 16 117/66 100 Room Air 03/23/17 11:27 73 03/23/17 08:57 97.7 66 18 126/73 100 Room Air 03/23/17 07:47 71 03/23/17 05:26 58 102/64 03/23/17 04:00 66 03/23/17 04:00 98.0 66 19 123/64 98 Room Air 7/23/17 00:00 97.0 70 19 100/62 100 Room Air 03/22/17 23:36 70 03/22/17 22:00 55 100/56 Height (Feet): 5 Height (Inches): 2.00 Weight (Pounds): 117 General Appearance: no acute distress, other - diffuse rash HEENT: normocephalic, atraumatic, anicteric, supple, no JVD Respiratory/Chest: chest wall non-tender, lungs clear, normal breath sounds, no respiratory distress, no accessory muscle use Cardiovascular: normal peripheral pulses, normal rate, regular rhythm, no gallop/murmur, no JVD Abdomen: normal bowel sounds, soft, non tender, no organomegaly, non distended , no mass, no scars Extremities: no cyanosis, no clubbing Skin: rash, lesions Laboratory Tests Test 03/23/17 04:15 White Blood Count 13.1 K/UL (4.8-10.8) H Red Blood Count 3.01 M/UL (4.20-5.40) L Hemoglobin 9.3 G/DL (12.0-16.0) L Hematocrit 27.7 % (37.0-47.0) L Mean Corpuscular Volume 92 FL (80-99) Mean Corpuscular Hemoglobin 30.8 PG (27.0-31.0) Mean Corpuscular Hemoglobin Concent 33.5 G/DL (32.0-36.0) Red Cell Distribution Width 13.7 % (11.6-14.8) Platelet Count 130 K/UL (150-450) L Mean Platelet Volume 8.4 FL (6.5-10.1) Neutrophils (%) (Auto) 79.1 % (45.0-75.0) H Lymphocytes (%) (Auto) 13.6 % (20.0-45.0) L Monocytes (%) (Auto) 6.8 % (1.0-10.0) Eosinophils (%) (Auto) 0.1 % (0.0-3.0) Basophils (%) (Auto) 0.3 % (0.0-2.0) Carcinoembryonic Antigen 3.7 ng/mL H Current Medications Medications (Trade) Dose Ordered Sig/Sandor Route PRN Reason Start Time Stop Time Status Last Admin Dose Admin Acetaminophen (Tylenol) 650 mg Q4H PRN ORAL Mild Pain/Temp > 100 03/21/17 18:00 04/20/17 17:59 Clonidine HCl (Catapres) 0.1 mg Q4H PRN ORAL sbp over 160 systolic 03/21/17 18:00 04/20/17 17:59 Dextrose/Sodium Chloride (D5ns) 1,000 ml @ 50 mls/hr Q20H IV 03/21/17 18:15 04/20/17 18:14 03/22/17 22:01 Diltiazem HCl (Cardizem) 30 mg EVERY 8 HOURS ORAL 03/21/17 22:00 04/20/17 21:59 03/23/17 13:53 Diphenhydramine HCl (Benadryl) 25 mg Q6H PRN ORAL Itching 03/21/17 18:00 04/20/17 17:59 03/23/17 17:14 Hydrocortisone (Hydrocortisone) 1 applic Q6H PRN TOPIC Itching 03/21/17 18:00 04/20/17 17:59 03/23/17 17:15 Methylprednisolone Sodium Succinate (Solu-MEDROL) 60 mg EVERY 8 HOURS IVP 03/23/17 06:00 04/22/17 05:59 03/23/17 13:54 Nystatin (Nystatin) 5 ml TID ORAL 03/21/17 18:00 03/28/17 17:59 03/23/17 17:14 Ondansetron HCl (Zofran) 4 mg Q6H PRN IVP Nausea & Vomiting 03/21/17 18:00 04/20/17 17:59 Ranitidine HCl (Zantac) 150 mg TWICE A DAY ORAL 03/21/17 18:00 04/20/17 17:59 03/23/17 17:14 Puja Patiño M.D. Mar 23, 2017 20:35
--- NOTE | 2017-03-23 21:03 | General Progress Note ---
Assessment/Plan Problem List: (1) UTI (urinary tract infection) ICD Codes: N39.0 - Urinary tract infection, site not specified SNOMED: 82953598 Qualifiers: Qualified Codes: N39.0 - Urinary tract infection, site not specified (2) Skin rash ICD Codes: R21 - Rash and other nonspecific skin eruption SNOMED: 774401822, 732828979 (3) Weakness ICD Codes: R53.1 - Weakness SNOMED: 68514536 (4) Dehydration ICD Codes: E86.0 - Dehydration SNOMED: 49621631 (5) fever,rash (6) Sepsis ICD Codes: A41.9 - Sepsis, unspecified organism SNOMED: 34794359 Status: progressing Assessment/Plan afebrile uti improving rash improving steroids obs Subjective ROS Limited/Unobtainable: Yes Allergies: Coded Allergies: No Known Allergies (Unverified , 03/19/17) Objective Last 24 Hour Vital Signs Date Time Temp Pulse Resp B/P Pulse Ox O2 Delivery O2 Flow Rate FiO2 03/23/17 20:00 97.0 58 18 127/63 99 Room Air 03/23/17 16:00 73 03/23/17 16:00 97.6 69 16 126/73 99 Room Air 03/23/17 13:53 74 134/76 03/23/17 12:00 98.1 68 16 117/66 100 Room Air 03/23/17 11:27 73 03/23/17 08:57 97.7 66 18 126/73 100 Room Air 03/23/17 07:47 71 03/23/17 05:26 58 102/64 03/23/17 04:00 66 03/23/17 04:00 98.0 66 19 123/64 98 Room Air 03/23/17 00:00 97.0 70 19 100/62 100 Room Air 03/22/17 23:36 70 03/22/17 22:00 55 100/56 Intake and Output 03/22/17 03/23/17 19:00 07:00 Intake Total 1120 ml 800 ml Output Total 802 ml 1 ml Balance 318 ml 799 ml Intake Oral 520 ml 200 ml IV Total 600 ml 600 ml Output Urine Total 800 ml Stool Total 2 ml 1 ml # Voids 3 Laboratory Tests 03/23/17 04:15: White Blood Count 13.1H, Red Blood Count 3.01L, Hemoglobin 9.3L, Hematocrit 27.7L, Mean Corpuscular Volume 92, Mean Corpuscular Hemoglobin 30.8, Mean Corpuscular Hemoglobin Concent 33.5, Red Cell Distribution Width 13.7, Platelet Count 130L, Mean Platelet Volume 8.4, Neutrophils (%) (Auto) 79.1H, Lymphocytes (%) (Auto) 13.6L, Monocytes (%) (Auto) 6.8, Eosinophils (%) (Auto) 0.1, Basophils (%) (Auto) 0.3, Carcinoembryonic Antigen 3.7H Height (Feet): 5 Height (Inches): 2.00 Weight (Pounds): 117 Cardiovascular: normal rate Abdomen: soft Bernabe Nuñez MD Mar 23, 2017 21:03
--- NOTE | 2017-03-23 21:39 | General Progress Note ---
Assessment/Plan Assessment/Plan # Thrombocytopenia is currently improved, now >100k, potentially was secondary to herbal medications/intoixation --> viral studies reviewed and are negative, currently is also on steriods, which may be of assistance # Anemia of chronic disease, ferritin is >1000 # Skin rash: suspect allergic reaction due to herbal meds she drank from a friend at home , now improving on steroids # Sepsis less likely with negative blood culture , off antibiotics , on pulse dose of steroids for allergy with anaphylaxis # JOMAR (acute kidney injury) due to dehydration, continue ivf , monitor UOP # Atrial fibrillation: continue tele monitor , and cardiac meds to control her rate, cardiology is following # Acute dyspnea: suspect due to allergic reaction with bronchospasm , will start steroids , pulmonary is following # UTI (urinary tract infection): culture showed mixed contaminants , S/P cefepime treatment Subjective Constitutional: Reports: no symptoms HEENT: Reports: no symptoms Cardiovascular: Reports: no symptoms Respiratory: Reports: no symptoms Gastrointestinal/Abdominal: Reports: poor appetite Genitourinary: Reports: no symptoms Neurologic/Psychiatric: Reports: no symptoms Endocrine: Reports: no symptoms Hematologic/Lymphatic: Reports: anemia Allergies: Coded Allergies: No Known Allergies (Unverified , 03/19/17) Subjective no complaoints, no fever or chills Objective Last 24 Hour Vital Signs Date Time Temp Pulse Resp B/P Pulse Ox O2 Delivery O2 Flow Rate FiO2 03/23/17 20:00 97.0 58 18 127/63 99 Room Air 03/23/17 16:00 73 03/23/17 16:00 97.6 69 16 126/73 99 Room Air 03/23/17 13:53 74 134/76 03/23/17 12:00 98.1 68 16 117/66 100 Room Air 03/23/17 11:27 73 03/23/17 08:57 97.7 66 18 126/73 100 Room Air 03/23/17 07:47 71 03/23/17 05:26 58 102/64 03/23/17 04:00 66 03/23/17 04:00 98.0 66 19 123/64 98 Room Air 03/23/17 00:00 97.0 70 19 100/62 100 Room Air 03/22/17 23:36 70 03/22/17 22:00 55 100/56 Intake and Output 03/22/17 03/23/17 19:00 07:00 Intake Total 1120 ml 800 ml Output Total 802 ml 1 ml Balance 318 ml 799 ml Intake Oral 520 ml 200 ml IV Total 600 ml 600 ml Output Urine Total 800 ml Stool Total 2 ml 1 ml # Voids 3 Laboratory Tests 03/23/17 04:15: White Blood Count 13.1H, Red Blood Count 3.01L, Hemoglobin 9.3L, Hematocrit 27.7L, Mean Corpuscular Volume 92, Mean Corpuscular Hemoglobin 30.8, Mean Corpuscular Hemoglobin Concent 33.5, Red Cell Distribution Width 13.7, Platelet Count 130L, Mean Platelet Volume 8.4, Neutrophils (%) (Auto) 79.1H, Lymphocytes (%) (Auto) 13.6L, Monocytes (%) (Auto) 6.8, Eosinophils (%) (Auto) 0.1, Basophils (%) (Auto) 0.3, Carcinoembryonic Antigen 3.7H Height (Feet): 5 Height (Inches): 2.00 Weight (Pounds): 117 General Appearance: alert EENT: TMs normal Cardiovascular: regular rhythm Respiratory/Chest: no accessory muscle use Abdomen: non tender Ellis Pugh Mar 23, 2017 21:39
[2017-03-23] MEDS: D5NS 1,000 ML IV SCH (21:57)
[2017-03-23] MEDS ORDERED: D5NS 1,000 ML IV SCH (23:15)
[2017-03-24] MEDS ORDERED: Hydrocortisone 1% Oint 30gm TOPIC PRN
[2017-03-24 04:00] VITALS: BP 118/65
[2017-03-24] MEDS ORDERED: Solu-MEDROL 125mg Inj IVP SCH (06:00)
[2017-03-24 08:25] VITALS: BP 109/57
[2017-03-24] MEDS: Nystatin Susp 500,000 units/5ml ORAL SCH ×2 (08:56→13:30)
--- NOTE | 2017-03-24 10:16 | Consultation ---
DATE OF CONSULTATION: 03/21/2017 HEMATOLOGY/ONCOLOGY CONSULTATION CONSULTING PHYSICIAN: Ellis Pugh M.D. REFERRING PHYSICIAN: Bernabe Nuñez M.D. REASON FOR CONSULTATION: Evaluation of anemia, leukopenia, and low platelet count. IDENTIFYING DATA: Dear Dr. Nuñez, The patient is a pleasant 81-year-old female with past medical history significant for hypertension, history of iron deficiency anemia, at this time presents with weakness, poor appetite, has some kind of allergic reaction to wine with generalized itching and tachycardia, brought him to the [facility] for closer observation, noted to be pancytopenic, and Hematology Service consulted. 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 PAST SURGICAL HISTORY: None noted. MEDICATIONS: Reviewed in the current [facility]. ALLERGIES: No known drug allergies besides to wine. SOCIAL HISTORY: She lives at home with her family. No alcohol, tobacco, or illicit drug use. REVIEW OF SYSTEMS: Difficult to obtain. PHYSICAL EXAMINATION: VITAL SIGNS: Stable and reviewed. GENERAL: No acute distress. PULMONARY: Decreased breath sounds. CARDIOVASCULAR: Regular rate. No S3 or S4. ABDOMEN: Soft, nontender, and nondistended. EXTREMITIES: 1+ pitting edema. SKIN: Diffuse rash noted all throughout. LABORATORY AND DIAGNOSTIC DATA: WBC 4.5, hemoglobin 10.6, hematocrit 32, and platelet count 103,000. Hepatitis panel is negative. HIV 1 and 2 are negative. antibody negative. is negative. IMAGING STUDIES: Reviewed. Chest x-ray, no acute disease. Ultrasound of the abdomen shows negative for gallstones and mild dry hydronephrosis. ASSESSMENT AND PLAN: 1. Pancytopenia, potentially secondary to underlying alcohol abuse. 2. Alcohol abuse 3. Anemia secondary to iron deficiency. She is Venofer. 4. , GI bleed. 5. Abdominal pain likely secondary to recent reaction to wine. 6. Transaminitis potentially secondary to drug reaction versus alcohol use. 7. Weakness. 8. Dehydration history. 9. . Ellis Pugh M.D. DR: NASRA JOB#: [id number] CC:
[2017-03-24 10:24] LABS: BASOPHILS % (AUTO) 0.7 % (0.0-2.0); EOSINOPHILS % (AUTO) 0.2 % (0.0-3.0); LYMPHOCYTES % (AUTO) 11.2 % (20.0-45.0); MEAN CORPUSCULAR HEMOGLOBIN 30.4 PG (27.0-31.0); MEAN CORPUSCULAR HGB CONC 32.7 G/DL (32.0-36.0); MEAN CORPUSCULAR VOLUME 93 FL (80-99); MEAN PLATELET VOLUME 8.9 FL (6.5-10.1); MONOCYTES % (AUTO) 4.8 % (1.0-10.0); PLATELET COUNT 166 K/UL (150-450); RED BLOOD COUNT 2.99 M/UL (4.20-5.40); RED CELL DISTRIBUTION WIDTH 14.1 % (11.6-14.8); WHITE BLOOD COUNT 11.8 K/UL (4.8-10.8)
[2017-03-24 10:35] LABS: ALANINE AMINOTRANSFERASE 113 U/L (3-33); ALBUMIN/GLOBULIN RATIO 1.7 (1.0-2.7); ANION GAP 14 (5-15); ASPARTATE AMINO TRANSFERASE 48 U/L (5-40); CARBON DIOXIDE 17 mEQ/L (20-30); CHLORIDE 111 mEQ/L (98-107); CREATININE 1.4 mg/dL (0.5-0.9); HEMOLYSIS 4; POTASSIUM 3.6 mEQ/L (3.4-4.9); SODIUM 142 mEQ/L (135-145); TOTAL PROTEIN 5.3 g/dL (6.6-8.7)
[2017-03-24 11:55] VITALS: BP 119/62
--- NOTE | 2017-03-24 12:36 | GI Progress Note ---
Assessment/Plan Problems: (1) LFTs abnormal ICD Codes: R79.89 - Other specified abnormal findings of blood chemistry SNOMED: 459912227 (2) Dehydration ICD Codes: E86.0 - Dehydration SNOMED: 52052052 (3) Weakness ICD Codes: R53.1 - Weakness SNOMED: 11525829 Status: stable Status Narrative Discussed with Dr. Wang. Assessment/Plan iron deficiency >> venofer elevated LFTs abdominal U/S >> unremarkable hepatitis panel >> negative stool ob negative facial swelling + urticaria >> resolved >> allergic reaction to wine? push PO tolerating diet LFTS improving will need EGD and colonoscopy either as in patient and if dc then as out patient fu labs dc planning Subjective Subjective denies abdominal pain rash is better wants to go home Objective Last 24 Hour Vital Signs Date Time Temp Pulse Resp B/P Pulse Ox O2 Delivery O2 Flow Rate FiO2 03/24/17 11:55 96.6 56 19 119/62 99 Room Air 03/24/17 08:25 97.0 56 19 109/57 100 Room Air 03/24/17 05:47 60 108/59 03/24/17 04:00 98.1 65 20 118/65 99 Room Air 03/23/17 21:56 80 109/63 03/23/17 20:00 97.0 58 18 127/63 99 Room Air 03/23/17 16:00 73 03/23/17 16:00 97.6 69 16 126/73 99 Room Air 03/23/17 13:53 74 134/76 Intake and Output 03/23/17 03/24/17 19:00 07:00 Intake Total 770 ml 825 ml Balance 770 ml 825 ml Intake Oral 220 ml 500 ml IV Total 550 ml 325 ml # Voids 2 1 # Bowel Movements 1 1 Laboratory Tests Test 03/24/17 10:00 White Blood Count 11.8 K/UL (4.8-10.8) H Red Blood Count 2.99 M/UL (4.20-5.40) L Hemoglobin 9.1 G/DL (12.0-16.0) L Hematocrit 27.8 % (37.0-47.0) L Mean Corpuscular Volume 93 FL (80-99) Mean Corpuscular Hemoglobin 30.4 PG (27.0-31.0) Mean Corpuscular Hemoglobin Concent 32.7 G/DL (32.0-36.0) Red Cell Distribution Width 14.1 % (11.6-14.8) Platelet Count 166 K/UL (150-450) Mean Platelet Volume 8.9 FL (6.5-10.1) Neutrophils (%) (Auto) 83.0 % (45.0-75.0) H Lymphocytes (%) (Auto) 11.2 % (20.0-45.0) L Monocytes (%) (Auto) 4.8 % (1.0-10.0) Eosinophils (%) (Auto) 0.2 % (0.0-3.0) Basophils (%) (Auto) 0.7 % (0.0-2.0) Sodium Level 142 mEQ/L (135-145) Potassium Level 3.6 mEQ/L (3.4-4.9) Chloride Level 111 mEQ/L (98-107) H Carbon Dioxide Level 17 mEQ/L (20-30) L Anion Gap 14 (5-15) Blood Urea Nitrogen 31 mg/dL (7-23) H Creatinine 1.4 mg/dL (0.5-0.9) H Estimat Glomerular Filtration Rate mL/min (>60) Glucose Level 158 mg/dL (74-106) H Calcium Level 8.0 mg/dL (8.6-10.2) L Total Bilirubin 0.4 mg/dL (0.0-1.2) Aspartate Amino Transf (AST/SGOT) 48 U/L (5-40) H Alanine Aminotransferase (ALT/SGPT) 113 U/L (3-33) H Alkaline Phosphatase 52 U/L (35-104) Total Protein 5.3 g/dL (6.6-8.7) L Albumin 3.4 g/dL (3.5-5.2) L Globulin 1.9 g/dL Albumin/Globulin Ratio 1.7 (1.0-2.7) Height (Feet): 5 Height (Inches): 2.00 Weight (Pounds): 117 General Appearance: no apparent distress, alert, thin Cardiovascular: normal rate Respiratory/Chest: normal breath sounds, no respiratory distress Abdominal Exam: normal bowel sounds, non tender, soft Extremities: normal range of motion Diane Carrizales N.P. Mar 24, 2017 12:35
[2017-03-24 14:14] LABS: VARICELLA ZOSTER IGM ANTIBODY <0.91 index (0.00-0.90)
--- NOTE | 2017-03-24 15:12 | Infectious Diseases Prog Note ---
Assessment/Plan Problems: (1) Skin rash Assessment & Plan: suspect allergic reaction due to herbal meds she drank from a friend at home , now improving on steroids , screening for mononucleosis , and for herpes, HZV are negative . screening for lyme disease, spirochete are pending . screening for HIV, syphilis, and hepatitis is negative. infection work up is negative so far , will taper down steroids , and switch to oral (2) Sepsis Assessment & Plan: less likely with negative blood culture , off antibiotics , improved on pulse dose of steroids for allergic reaction with anaphylaxis (3) JOMAR (acute kidney injury) Assessment & Plan: due to dehydration, continue ivf , monitor UOP (4) Atrial fibrillation Assessment & Plan: continue tele monitor , and cardiac meds to control her rate , cardiology is following (5) Acute dyspnea Assessment & Plan: suspect due to allergic reaction with bronchospasm , will start steroids , pulmonary is following (6) UTI (urinary tract infection) Assessment & Plan: culture showed mixed contaminants , S/P cefepime treatment Subjective Constitutional: Reports: no symptoms HEENT: Reports: no symptoms Respiratory: Reports: no symptoms Breasts: Reports: no symptoms Cardiovascular: Reports: no symptoms Gastrointestinal/Abdominal: Reports: no symptoms Genitourinary: Reports: no symptoms Neurologic: Reports: no symptoms Psychiatric: Reports: no symptoms Skin: Reports: other - dry with scales Endocrine: Reports: no symptoms Allergies: Coded Allergies: No Known Allergies (Unverified , 03/19/17) Subjective she continues to have fever and skin rash diffuse all over her body, with facial swelling . Objective Vital Signs Last 24 Hour Vital Signs Date Time Temp Pulse Resp B/P Pulse Ox O2 Delivery O2 Flow Rate FiO2 03/24/17 14:00 62 119/65 03/24/17 11:55 96.6 56 19 119/62 99 Room Air 03/24/17 08:25 97.0 56 19 109/57 100 Room Air 03/24/17 05:47 60 108/59 03/24/17 04:00 98.1 65 20 118/65 99 Room Air 03/23/17 21:56 80 109/63 03/23/17 20:00 97.0 58 18 127/63 99 Room Air 03/23/17 16:00 73 03/23/17 16:00 97.6 69 16 126/73 99 Room Air Height (Feet): 5 Height (Inches): 2.00 Weight (Pounds): 117 General Appearance: WD/WN, no acute distress HEENT: normocephalic, atraumatic, anicteric, mucous membranes moist Respiratory/Chest: chest wall non-tender, lungs clear, normal breath sounds, no respiratory distress, no accessory muscle use Cardiovascular: normal peripheral pulses, normal rate, regular rhythm, no gallop/murmur, no JVD Abdomen: normal bowel sounds, soft, non tender, no organomegaly, non distended , no mass, no scars Extremities: no cyanosis, no clubbing Skin: no rash, no lesions, no ulcers Lymphatic: no neck adenopathy, no groin adenopathy Musculoskeletal: normal muscle bulk Laboratory Tests Test 03/24/17 10:00 White Blood Count 11.8 K/UL (4.8-10.8) H Red Blood Count 2.99 M/UL (4.20-5.40) L Hemoglobin 9.1 G/DL (12.0-16.0) L Hematocrit 27.8 % (37.0-47.0) L Mean Corpuscular Volume 93 FL (80-99) Mean Corpuscular Hemoglobin 30.4 PG (27.0-31.0) Mean Corpuscular Hemoglobin Concent 32.7 G/DL (32.0-36.0) Red Cell Distribution Width 14.1 % (11.6-14.8) Platelet Count 166 K/UL (150-450) Mean Platelet Volume 8.9 FL (6.5-10.1) Neutrophils (%) (Auto) 83.0 % (45.0-75.0) H Lymphocytes (%) (Auto) 11.2 % (20.0-45.0) L Monocytes (%) (Auto) 4.8 % (1.0-10.0) Eosinophils (%) (Auto) 0.2 % (0.0-3.0) Basophils (%) (Auto) 0.7 % (0.0-2.0) Sodium Level 142 mEQ/L (135-145) Potassium Level 3.6 mEQ/L (3.4-4.9) Chloride Level 111 mEQ/L (98-107) H Carbon Dioxide Level 17 mEQ/L (20-30) L Anion Gap 14 (5-15) Blood Urea Nitrogen 31 mg/dL (7-23) H Creatinine 1.4 mg/dL (0.5-0.9) H Estimat Glomerular Filtration Rate mL/min (>60) Glucose Level 158 mg/dL (74-106) H Calcium Level 8.0 mg/dL (8.6-10.2) L Total Bilirubin 0.4 mg/dL (0.0-1.2) Aspartate Amino Transf (AST/SGOT) 48 U/L (5-40) H Alanine Aminotransferase (ALT/SGPT) 113 U/L (3-33) H Alkaline Phosphatase 52 U/L (35-104) Total Protein 5.3 g/dL (6.6-8.7) L Albumin 3.4 g/dL (3.5-5.2) L Globulin 1.9 g/dL Albumin/Globulin Ratio 1.7 (1.0-2.7) Current Medications Medications (Trade) Dose Ordered Sig/Sandor Route PRN Reason Start Time Stop Time Status Last Admin Dose Admin Acetaminophen (Tylenol) 650 mg Q4H PRN ORAL Mild Pain/Temp > 100 03/24/17 02:00 04/23/17 01:59 Clonidine HCl (Catapres) 0.1 mg Q4H PRN ORAL sbp over 160 systolic 03/24/17 02:00 04/23/17 01:59 Dextrose/Sodium Chloride (D5ns) 1,000 ml @ 50 mls/hr Q20H IV 03/23/17 23:15 04/22/17 23:14 03/23/17 23:28 Diltiazem HCl (Cardizem) 30 mg EVERY 8 HOURS ORAL 03/24/17 06:00 04/23/17 05:59 Diphenhydramine HCl (Benadryl) 25 mg Q6H PRN ORAL Itching 03/24/17 00:00 04/23/17 00:00 03/24/17 05:46 Hydrocortisone (Hydrocortisone) 1 applic Q6H PRN TOPIC Itching 03/24/17 00:00 04/23/17 00:00 Nystatin (Nystatin) 5 ml TID ORAL 03/24/17 09:00 03/31/17 08:59 03/24/17 13:30 Ondansetron HCl (Zofran) 4 mg Q6H PRN IVP Nausea & Vomiting 03/24/17 00:00 04/23/17 00:00 Ranitidine HCl (Zantac) 150 mg DAILY ORAL 03/24/17 09:00 04/23/17 08:59 03/24/17 08:56 Puja Patiño M.D. Mar 24, 2017 15:12
--- NOTE | 2017-03-24 15:29 | Nephrology Progress Note ---
Assessment/Plan Problem List: (1) Hyponatremia Assessment: ok (2) JOMAR (acute kidney injury) Assessment: stable (3) HTN (hypertension) (4) Anemia (5) Atrial fibrillation (6) UTI (urinary tract infection) (7) Skin rash Plan same meds follow labs Subjective Subjective In NAD Objective Objective Last 24 Hour Vital Signs Date Time Temp Pulse Resp B/P Pulse Ox O2 Delivery O2 Flow Rate FiO2 03/24/17 14:00 62 119/65 03/24/17 11:55 96.6 56 19 119/62 99 Room Air 03/24/17 08:25 97.0 56 19 109/57 100 Room Air 03/24/17 05:47 60 108/59 03/24/17 04:00 98.1 65 20 118/65 99 Room Air 03/23/17 21:56 80 109/63 03/23/17 20:00 97.0 58 18 127/63 99 Room Air 03/23/17 16:00 73 03/23/17 16:00 97.6 69 16 126/73 99 Room Air Intake and Output 03/23/17 03/24/17 19:00 07:00 Intake Total 770 ml 825 ml Balance 770 ml 825 ml Intake Oral 220 ml 500 ml IV Total 550 ml 325 ml # Voids 2 1 # Bowel Movements 1 1 Laboratory Tests 03/24/17 10:00: White Blood Count 11.8H, Red Blood Count 2.99L, Hemoglobin 9.1L, Hematocrit 27.8L, Mean Corpuscular Volume 93, Mean Corpuscular Hemoglobin 30.4, Mean Corpuscular Hemoglobin Concent 32.7, Red Cell Distribution Width 14.1, Platelet Count 166, Mean Platelet Volume 8.9, Neutrophils (%) (Auto) 83.0H, Lymphocytes ( %) (Auto) 11.2L, Monocytes (%) (Auto) 4.8, Eosinophils (%) (Auto) 0.2, Basophils (%) (Auto) 0.7, Sodium Level 142, Potassium Level 3.6, Chloride Level 111H, Carbon Dioxide Level 17L, Anion Gap 14, Blood Urea Nitrogen 31H, Creatinine 1.4H, Estimat Glomerular Filtration Rate , Glucose Level 158H, Calcium Level 8.0L, Total Bilirubin 0.4, Aspartate Amino Transf (AST/SGOT) 48H, Alanine Aminotransferase (ALT/SGPT) 113H, Alkaline Phosphatase 52, Total Protein 5.3L, Albumin 3.4L, Globulin 1.9, Albumin/Globulin Ratio 1.7 Height (Feet): 5 Height (Inches): 2.00 Weight (Pounds): 117 Cardiovascular: normal rate Respiratory/Chest: lungs clear Extremities: trace edema KENDRA STARKS Mar 24, 2017 15:29
[2017-03-24 16:31] VITALS: BP 119/64
--- NOTE | 2017-03-24 16:37 | Cardiac Electrophysiology PN ---
Assessment/Plan Assessment/Plan 1. Atrial fibrillation with rapid ventricular response that converted spontaneously to sinus rhythm. Continue Cardizem 30 tid 2. Hypertension history. On Cardizem 30 mg three times daily. 3. Allergic reaction with diffuse rash. 4. Renal failure. 5. Urinary tract infection and subsequent skin rash Dr. Patiño for IV antibiotic with temperature max of 102.7 degrees. YARELIS RN Subjective Subjective Transferred to [facility]. Feeling better. No chest pain or SOB. Objective Last 24 Hour Vital Signs Date Time Temp Pulse Resp B/P Pulse Ox O2 Delivery O2 Flow Rate FiO2 03/24/17 16:31 96.4 57 19 119/64 98 Room Air 03/24/17 14:00 62 119/65 03/24/17 11:55 96.6 56 19 119/62 99 Room Air 03/24/17 08:25 97.0 56 19 109/57 100 Room Air 03/24/17 05:47 60 108/59 03/24/17 04:00 98.1 65 20 118/65 99 Room Air 03/23/17 21:56 80 109/63 03/23/17 20:00 97.0 58 18 127/63 99 Room Air Intake and Output 03/23/17 03/24/17 19:00 07:00 Intake Total 770 ml 825 ml Balance 770 ml 825 ml Intake Oral 220 ml 500 ml IV Total 550 ml 325 ml # Voids 2 1 # Bowel Movements 1 1 Laboratory Tests Test 03/24/17 10:00 White Blood Count 11.8 K/UL (4.8-10.8) H Red Blood Count 2.99 M/UL (4.20-5.40) L Hemoglobin 9.1 G/DL (12.0-16.0) L Hematocrit 27.8 % (37.0-47.0) L Mean Corpuscular Volume 93 FL (80-99) Mean Corpuscular Hemoglobin 30.4 PG (27.0-31.0) Mean Corpuscular Hemoglobin Concent 32.7 G/DL (32.0-36.0) Red Cell Distribution Width 14.1 % (11.6-14.8) Platelet Count 166 K/UL (150-450) Mean Platelet Volume 8.9 FL (6.5-10.1) Neutrophils (%) (Auto) 83.0 % (45.0-75.0) H Lymphocytes (%) (Auto) 11.2 % (20.0-45.0) L Monocytes (%) (Auto) 4.8 % (1.0-10.0) Eosinophils (%) (Auto) 0.2 % (0.0-3.0) Basophils (%) (Auto) 0.7 % (0.0-2.0) Sodium Level 142 mEQ/L (135-145) Potassium Level 3.6 mEQ/L (3.4-4.9) Chloride Level 111 mEQ/L (98-107) H Carbon Dioxide Level 17 mEQ/L (20-30) L Anion Gap 14 (5-15) Blood Urea Nitrogen 31 mg/dL (7-23) H Creatinine 1.4 mg/dL (0.5-0.9) H Estimat Glomerular Filtration Rate mL/min (>60) Glucose Level 158 mg/dL (74-106) H Calcium Level 8.0 mg/dL (8.6-10.2) L Total Bilirubin 0.4 mg/dL (0.0-1.2) Aspartate Amino Transf (AST/SGOT) 48 U/L (5-40) H Alanine Aminotransferase (ALT/SGPT) 113 U/L (3-33) H Alkaline Phosphatase 52 U/L (35-104) Total Protein 5.3 g/dL (6.6-8.7) L Albumin 3.4 g/dL (3.5-5.2) L Globulin 1.9 g/dL Albumin/Globulin Ratio 1.7 (1.0-2.7) Objective HEAD AND NECK: No JVD. LUNGS: Decreased breath sounds. CARDIOVASCULAR: Regular S1 and S2 with no gallop. ABDOMEN: Soft. EXTREMITIES: Diffuse erythematous rash. RICK SHAFER Mar 24, 2017 16:37
[2017-03-24] MEDS ORDERED: D5NS 1000ml IV ONE (17:59)
--- NOTE | 2017-03-24 18:00 | General Progress Note ---
Assessment/Plan Assessment/Plan # Thrombocytopenia is currently improved, now >100k, potentially was secondary to herbal medications/intoxication --> viral studies reviewed and are negative, currently is also on steroids, which may be of assistance # Anemia of chronic disease, ferritin is >1000 --> monitor h/h # Skin rash: suspect allergic reaction due to herbal meds she drank from a friend at home , now improving on steroids # Sepsis less likely with negative blood culture , off antibiotics , on pulse dose of steroids for allergy with anaphylaxis # JOMAR (acute kidney injury) due to dehydration, continue ivf , monitor UOP # Atrial fibrillation: continue tele monitor , and cardiac meds to control her rate, cardiology is following # Acute dyspnea: suspect due to allergic reaction with bronchospasm , will start steroids , pulmonary is following # UTI (urinary tract infection): culture showed mixed contaminants , S/P cefepime treatment Subjective Constitutional: Reports: no symptoms HEENT: Reports: no symptoms Cardiovascular: Reports: no symptoms Respiratory: Reports: no symptoms Gastrointestinal/Abdominal: Reports: no symptoms Genitourinary: Reports: no symptoms Neurologic/Psychiatric: Reports: no symptoms Endocrine: Reports: no symptoms Hematologic/Lymphatic: Reports: no symptoms Allergies: Coded Allergies: No Known Allergies (Unverified , 03/19/17) Subjective no events occurring overnight, son does not want her to go to [facility] Objective Last 24 Hour Vital Signs Date Time Temp Pulse Resp B/P Pulse Ox O2 Delivery O2 Flow Rate FiO2 03/24/17 16:31 96.4 57 19 119/64 98 Room Air 03/24/17 14:00 62 119/65 03/24/17 11:55 96.6 56 19 119/62 99 Room Air 03/24/17 08:25 97.0 56 19 109/57 100 Room Air 03/24/17 05:47 60 108/59 03/24/17 04:00 98.1 65 20 118/65 99 Room Air 03/23/17 21:56 80 109/63 03/23/17 20:00 97.0 58 18 127/63 99 Room Air Intake and Output 03/23/17 03/24/17 19:00 07:00 Intake Total 770 ml 825 ml Balance 770 ml 825 ml Intake Oral 220 ml 500 ml IV Total 550 ml 325 ml # Voids 2 1 # Bowel Movements 1 1 Laboratory Tests 7/24/17 10:00: White Blood Count 11.8H, Red Blood Count 2.99L, Hemoglobin 9.1L, Hematocrit 27.8L, Mean Corpuscular Volume 93, Mean Corpuscular Hemoglobin 30.4, Mean Corpuscular Hemoglobin Concent 32.7, Red Cell Distribution Width 14.1, Platelet Count 166, Mean Platelet Volume 8.9, Neutrophils (%) (Auto) 83.0H, Lymphocytes ( %) (Auto) 11.2L, Monocytes (%) (Auto) 4.8, Eosinophils (%) (Auto) 0.2, Basophils (%) (Auto) 0.7, Sodium Level 142, Potassium Level 3.6, Chloride Level 111H, Carbon Dioxide Level 17L, Anion Gap 14, Blood Urea Nitrogen 31H, Creatinine 1.4H, Estimat Glomerular Filtration Rate , Glucose Level 158H, Calcium Level 8.0L, Total Bilirubin 0.4, Aspartate Amino Transf (AST/SGOT) 48H, Alanine Aminotransferase (ALT/SGPT) 113H, Alkaline Phosphatase 52, Total Protein 5.3L, Albumin 3.4L, Globulin 1.9, Albumin/Globulin Ratio 1.7 Height (Feet): 5 Height (Inches): 2.00 Weight (Pounds): 117 General Appearance: no apparent distress EENT: normal ENT inspection Neck: normal alignment Cardiovascular: normal peripheral pulses Respiratory/Chest: lungs clear Extremities: non-tender Edema: no edema noted Pedal (L), no edema noted Pedal (R) Skin: normal pigmentation Ellis Pugh Mar 24, 2017 18:00
--- NOTE | 2017-03-24 19:49 | Pulmonology Progress Note ---
Assessment/Plan Problems: (1) Sepsis (2) Acute dyspnea (3) Dermatitis (4) Tachycardia (5) HTN (hypertension) Assessment/Plan improving heart rate bp controlled pt/tp pt wants to go home Subjective ROS Limited/Unobtainable: No Constitutional: Reports: no symptoms HEENT: Repors: no symptoms Allergies: Coded Allergies: No Known Allergies (Unverified , 03/19/17) Objective Last 24 Hour Vital Signs Date Time Temp Pulse Resp B/P Pulse Ox O2 Delivery O2 Flow Rate FiO2 03/24/17 16:31 96.4 57 19 119/64 98 Room Air 03/24/17 14:00 62 119/65 03/24/17 11:55 96.6 56 19 119/62 99 Room Air 03/24/17 08:25 97.0 56 19 109/57 100 Room Air 03/24/17 05:47 60 108/59 03/24/17 04:00 98.1 65 20 118/65 99 Room Air 03/23/17 21:56 80 109/63 03/23/17 20:00 97.0 58 18 127/63 99 Room Air Intake and Output 03/23/17 03/24/17 19:00 07:00 Intake Total 770 ml 825 ml Balance 770 ml 825 ml Intake Oral 220 ml 500 ml IV Total 550 ml 325 ml # Voids 2 1 # Bowel Movements 1 1 General Appearance: WD/WN HEENT: normocephalic Respiratory/Chest: chest wall non-tender, lungs clear Breasts: no masses Cardiovascular: normal peripheral pulses Abdomen: normal bowel sounds, soft, non tender Genitourinary: normal external genitalia Extremities: no cyanosis 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 Lymphatic: no neck adenopathy Laboratory Tests 03/24/17 10:00: White Blood Count 11.8H, Red Blood Count 2.99L, Hemoglobin 9.1L, Hematocrit 27.8L, Mean Corpuscular Volume 93, Mean Corpuscular Hemoglobin 30.4, Mean Corpuscular Hemoglobin Concent 32.7, Red Cell Distribution Width 14.1, Platelet Count 166, Mean Platelet Volume 8.9, Neutrophils (%) (Auto) 83.0H, Lymphocytes ( %) (Auto) 11.2L, Monocytes (%) (Auto) 4.8, Eosinophils (%) (Auto) 0.2, Basophils (%) (Auto) 0.7, Sodium Level 142, Potassium Level 3.6, Chloride Level 111H, Carbon Dioxide Level 17L, Anion Gap 14, Blood Urea Nitrogen 31H, Creatinine 1.4H, Estimat Glomerular Filtration Rate , Glucose Level 158H, Calcium Level 8.0L, Total Bilirubin 0.4, Aspartate Amino Transf (AST/SGOT) 48H, Alanine Aminotransferase (ALT/SGPT) 113H, Alkaline Phosphatase 52, Total Protein 5.3L, Albumin 3.4L, Globulin 1.9, Albumin/Globulin Ratio 1.7 ALECIA HERNANDEZ Mar 24, 2017 19:49
--- NOTE | 2017-03-25 12:43 | Discharge Summary ---
Discharge Summary Hospital Course Date of Admission Mar 19, 2017 at 04:15 Date of Discharge Mar 24, 2017 at 18:00 Admitting Diagnosis WEAKNESS,DEHYDRATION HPI Jim Tamayo is a 81 year old female who was admitted on Mar 19, 2017 at 04:15 for Weakness,Dehydration Hospital Course dc summary # [id number] Discharge Discharge Disposition Patient was signed AMA Discharge Diagnoses: Discharge Instructions Discharge Instructions Special Instructions I have been assigned to complete a D/C Summary on this account. I was not involved in the patient management Smitha Fragoso NP (Vanchtein) Mar 25, 2017 12:43
--- NOTE | 2017-03-26 09:32 | Discharge Summary 2 SIG ---
DATE OF ADMISSION: 03/19/2017 DATE OF SIGNING AGAINST MEDICAL ADVICE: 03/24/2017 T CONSULTANTS: 1. Jeovanny Llamas M.D., Pulmonary. 2. Mac Rajan M.D., Cardiology. 3. Puja Patiño M.D., infectious diseases specialist. 4. Mayur Almazan M.D., Nephrology. 5. Roge Wang M.D., GI. 6. Ellis Pugh M.D., client reporting associate. BRIEF HOSPITAL STAY: 81-year-old female presented with generalized weakness, poor appetite, and fever at home. She denied chest pain or shortness of breath. No nausea. No vomiting. She had a low-grade fever of 99.7 degrees in ED. Pulse oximetry was stable on room air. Heart rate was stable. Troponin was negative. Urinalysis with gross evidence of UTI. Lactic acid -1.4. BUN-35 and creatinine- 2.2. No leukocytosis. Chest x-ray was negative for acute cardiopulmonary disease. EKG revealed normal sinus rhythm. The patient was admitted for UTI and dehydration for further management. The patient was started on IV fluids and antibiotics. Urine culture revealed mixed gram-positive organisms. Blood cultures were negative. According to Infectious Diseases doctor, antibiotic were discontinued. The patient developed diffuse skin rash with dermatitis, likely secondary to herbal medication she drank from a friend at home. The patient was started on short steroid pulse and was improved. The patient was screened for mononucleosis, HSV, HZV, all negative results. The test for Lyme disease still pending. HIV, syphilis, and hepatitis panel were all negative. Steroids were tapered down and switched to oral route upon discharge. Urticaria and facial swelling due to allergic reaction, resolving. Lathe Set Up Operator followed the patient secondary to acute renal failure, likely secondary to dehydration. With IV fluids, renal parameters improved. BUN down to 31 and creatinine down to 1.4. Lathe Set Up Operator recommended keep Mackenzie in, monitor intake and output, renal parameters, electrolytes, replace as needed, and avoid nephrotoxics. Acute renal failure was likely secondary to dehydration, prerenal, improved with IV fluids. Hyponatremia resolved, also likely secondary to dehydration. Acute dyspnea noted, likely secondary to allergic reaction with bronchospasm. The patient, as mentioned above, was on steroids and respiratory status improved. Pulse oximetry was stable on the room air. Noted transaminitis, but trending down. Hepatitis panel negative. Blood pressure was managed with Cardizem and was stable. Cardiology followed. The patient was admitted initially on telemetry, exhibited atrial fibrillation with rapid ventricular response. Rate control was provided with Cardizem. The patient converted spontaneously to sinus rhythm. No need for anticoagulation. 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 The patient had anemia of chronic disease. Ferritin was high. Monitor counts with goal to keep hemoglobin above 7. Abdominal ultrasound revealed mild right hydronephrosis. No dilated ducts. No gallstones. GI followed due to transaminitis trending down. Stool OB was negative. According to GI, recommended , push p.o. fluids and recommended EGD and colonoscopy either as an inpatient or outpatient. The patient was able to tolerate diet. The patient was working with physical and occupational therapists. Patient was suggested to go to alf facility for further rehabilitation. Grandson refused placement, even short-term. Call was placed to physician, but the grandson did not want to wait beyond 15 minutes. Risks and consequences of signing against medical advice were discussed with the patient's grandson. He insisted on leaving and signed the form. FINAL DIAGNOSES: 1. Dehydration. 2. Acute renal failure, likely secondary to dehydration. 3. Acute dyspnea, likely secondary to bronchospasm . 4. Hypertension. 5. Atrial fibrillation with rapid ventricular response. 6. Transaminitis. 7. Allergic reaction with diffuse rash. 8. Hyponatremia. 9. Anemia of chronic disease. Bernabe Nuñez M.D. I have been assigned to dictate discharge summary on this account and I was not involved in the patient's management. Smitha Davisonronald N.P. DR: Chivo JOB#: [id number] CC: ELIO
[2017-03-26 10:34] LABS: OTHERS PATHOLOGIST COMMENT
--- NOTE | 2017-03-27 07:42 | Cardiology Report ---
APPROVED REPORT EXAM: Two-dimensional and M-mode echocardiogram with Doppler and color Doppler. INDICATION Congestive Heart Failure M-Mode DIMENSIONS IVSd1.1 (0.7-1.1cm)Left Atrium (MM)4.4 (1.6-4.0cm) LVDd4.2 (3.5-5.6cm)Aortic Root2.9 (2.0-3.7cm) PWd0.7 (0.7-1.1cm)Aortic Cusp Exc.1.8 (1.5-2.0cm) LVDs3.1 (2.5-4.0cm) PWs1.3 cm Technically difficult study due to poor acoustic windows. Study quality precludes accurate assessment of regional wall motion. Normal left ventricular chamber size, systolic function and wall motion. Left ventricular ejection fraction estimated to be 55 %. No evidence of left ventricular hypertrophy. Anterior Echo-free space, may be due to pericardial fat or effusion. Mild right atrial enlargement. Left atrial chamber size is within normal limits. Right ventricular chamber size is within normal limits. Mild focal aortic valve sclerosis with adequate cusp excursion. Mildly thickened mitral valve leaflets with normal excursion. Mild mitral annulus and aortic root calcification. Pulmonic valve not well visualized. Normal tricuspid valve structure. IVC is normal in size with physiologic collapse. A color flow and spectral Doppler study was performed and revealed: No aortic regurgitation. Mild mitral regurgitation. Mitral inflow velocities indicates normal left ventricular diastolic function. Trace tricuspid regurgitation. Tricuspid systolic velocities suggests peak right ventricular systolic pressure of 26 mmHg. No pulmonic regurgitation present.
== END 2017-03-24 18:00 | disposition left against medical advice (07) | DRG 690 ==
LOC: EMR 02:55 → 4E 04:15 → EDBEDREQ 04:49 → 4E 05:55 → 2W 03-21 09:06 → 4W 03-23 23:09
DX: N39.0 Urinary tract infection, site not specified (principal); N17.9 Acute kidney failure, unspecified; I48.91 Unspecified atrial fibrillation; E87.1 Hypo-osmolality and hyponatremia; E86.0 Dehydration; I10 Essential (primary) hypertension; M10.9 Gout, unspecified; D50.9 Iron deficiency anemia, unspecified; D63.8 Anemia in other chronic diseases classified elsewhere; L27.2 Dermatitis due to ingested food; J98.01 Acute bronchospasm
CPT/HCPCS: 36415; 36600; 71010; 76700; 80053; 80061; 81003; 82270; 82378; 82550; 82553; 82607; 82728; 82746; 82803; 82977; 83036; 83540; 83550; 83605; 83615; 83735; 83880; 84100; 84300; 84439; 84443; 84484; 84550; 85007; 85025; 85060; 85651; 86140; 86308; 86592; 86695; 86703; 86705; 86709; 86720; 86787; 86803; 87040; 87086; 87340; 93005; 93306; J3490; S0077